=== PATIENT | female | born 1940 | race Caucasian/White ===

== ENCOUNTER 2024-09-23 09:19 | Outpatient (CLI) | payer MEDICARE, SELFPAY ==
--- NOTE | ~2024-09-23 | XR_ITS ---
XR knee RT 3V Ordering provider: Nani Mariano, STRATEGY CONSULTANT History: . PAIN IN RIGHT KNEE . Comparison: None. FINDINGS: BONES: No acute fracture or dislocation. JOINT SPACES: Slight narrowing of the medial compartment. SOFT TISSUES: Normal. IMPRESSION: No acute osseous abnormality right knee. Mild to moderate osteoarthritic changes. Reviewed, dictated and finalized at location A. TROGRAPHER
== END 2024-09-23 09:20 | disposition home or self-care (01) ==
LOC: MICIMG 09:23
PROVIDERS: PCP Nurse Practitioner Family; Visit Provider Nurse Practitioner Family
DX: M17.11 Unilateral primary osteoarthritis, right knee (principal)
CPT/HCPCS: 73562

== ENCOUNTER 2025-05-31 10:39 | Emergency (ER) | payer MEDICARE, SELFPAY ==
[2025-05-31 10:47] VITALS: BP 151/76; PULSE 78; RESP 16; TEMP 36.5; O2SAT 96
--- NOTE | 2025-05-31 10:57 | ED_ITS ---
HPI - Dizziness General Chief Complaint: Dizziness Stated Complaint: dizziness Time Seen by Provider: 05/31/25 10:57 Source: patient Mode of arrival: ambulatory Limitations: no limitations History of Present Illness HPI Narrative: 85 yo F presents with c/o dizziness on standing and when ambulatory for 2 days. On saturday pt did yardwork, scrubbed kitchen floors and moved furniture to clean. around 3 or 4 pm she started feelin dizzy. States i feel fine otherwise. i dont feel sick. Ambulatory with steady gait. No CP or SOB. No vision changes. Was able to to drive herself to . No headache. Prior to this has been dizzy in the morning when gettin gout of bed only lasting a d few seconds. PCP was not able to see her today. All systems reviewed and negative except as noted above. Related Data Home Medications ?Medication ?Instructions ?Recorded ?Confirmed ?Last Taken ?Type ergocalciferol (vitamin D2) 1,250 1,250 mcg PO DAILY 1 07/31/24 06/14/25 Unknown History mcg (50,000 unit) capsule lisinopril 20 1 tablet PO DAILY 05/31/25 1 08/14/24 Unknown History mg-hydrochlorothiazide 12.5 mg tablet semaglutide 1 mg/dose (4 mg/3 mL) 1 mg subcut WEEKLY 1 07/31/24 06/14/25 Unknown History subcutaneous pen injector (Ozempic) simvastatin 20 mg tablet 20 mg PO QPM 05/31/25 Unknown History Allergies Allergy/AdvReac Type Severity Reaction Status Date / Time Sulfa (Sulfonamide AdvReac Mild Itching Verified 06/14/25 15:27 Antibiotics) codeine AdvReac Unknown Dizziness Verified 06/14/25 15:27 [facility] Past Medical History Medical History (Updated 06/16/25 @ 00:00 by Tomi Myers) History of high cholesterol History of high blood pressure Family History Family History Mother Family history of malignant neoplasm Father Family history of malignant neoplasm Comments At time of signature, agree with nursing past medical, surgical, social and family history. There is no relevant family history pertinent to the presenting complaint. Exam Narrative: GENERAL: This is a well-nourished, well-developed patient, in no apparent distress. HEAD: normocephalic, atraumatic. EYES: PERRL. Sclera clear/white. Vision is grossly intact. Extraocular motions intact EARS: External ears normal, auditory canals clear and without drainage, TMs normal without perforation. Hearing grossly intact. NOSE: External nose normal with no obvious nasal discharge, nares without redness, no rhinorrhea. THROAT: Mucous membranes moist, posterior pharynx clear. NECK: Neck supple, non-tender without lymphadenopathy, masses or thyromegaly. CARDIOVASCULAR: Regular rate and rhythm without murmurs, gallops, or rubs. RESPIRATORY: Clear to auscultation. Breath sounds equal bilaterally. No wheezes, rales, or rhonchi. GASTROINTESTINAL: Abdomen soft, non-tender, nondistended. Bowel sounds are active. No hepato-splenomegaly, or palpable masses. No guarding. SKIN: warm, Dry, intact with no suspicious lesions or rash, good texture and turgor. NEURO: awake, alert, and oriented to person, place and time. There were no obvious focal neurologic abnormalities. 5/5 Strength to all extremities. EXTREMITIES: No joint tenderness, effusion, or edema noted. Course Course Level of Care: Express Care Visit Vital Signs Vital signs: Vital Signs Temperature 36.5 C 05/31/25 10:47 Pulse Rate 78 05/31/25 10:47 Respiratory Rate 16 05/31/25 10:47 Blood Pressure 151/76 H 05/31/25 10:47 Pulse Oximetry 96 05/31/25 10:47 Oxygen Delivery Room Air 05/31/25 10:47 Temperature 36.5 C 05/31/25 10:47 Pulse Rate 78 05/31/25 10:47 Respiratory Rate 16 05/31/25 10:47 Blood Pressure 151/76 H 05/31/25 10:47 Pulse Oximetry 96 05/31/25 10:47 Oxygen Delivery Room Air 05/31/25 10:47 reviewed MDM - Dizziness MDM Narrative Medical decision making narrative: patient reports dizziness only when ambulatory for the past 2 days. Subsides after she is up and walking for a few seconds. No dizziness at this time. No dizziness during exam. No complaints of pain. Patient is alert oriented x3. No neuro deficits noted. No chest pain or shortness of breath. Will start meclizine. Recommend follow-up with primary care physician for further evaluation. Patient will go to the ER for any worsening of symptoms. Discharge Plan Discharge Clinical Impression: Vertigo Patient Disposition: Home Condition: Stable Instructions: Vertigo (ED), Dizziness (ED) Additional Instructions: Take medication as prescribed. Drink at least 64 ounces of water a day. Follow up with your doctor in 3 days for further evaluation. For any worsening of symptoms, go to the ER. Patient Language: Andorran Prescriptions: No Action lisinopril-hydrochlorothiazide 20-12.5 mg tablet 1 tablet PO DAILY simvastatin 20 mg tablet 20 mg PO QPM ergocalciferol (vitamin D2) 1,250 mcg (50,000 unit) capsule 1,250 mcg PO DAILY Ozempic 1 mg/dose (4 mg/3 mL) pen injector 1 mg SUBCUT WEEKLY Follow-up/Referrals: García,Nani Canseco NP [Primary Care Provider, Unknown] Time of Disposition: 11:11
[2025-05-31] MEDS: MECLIZINE HCL 25 MG TABLET PO (11:12)
== END 2025-05-31 11:14 | disposition home or self-care (01) ==
PROVIDERS: Emergency Provider Nurse Practitioner Family; PCP Nurse Practitioner Family
DX: R42 Dizziness and giddiness (principal); I10 Essential (primary) hypertension; E78.00 Pure hypercholesterolemia, unspecified
CPT/HCPCS: 99213; A9270; G0463

== ENCOUNTER 2025-06-14 14:02 | Emergency (ER) | payer MEDICARE, SELFPAY ==
[2025-06-14 14:13] VITALS: BP 116/64; PULSE 93; RESP 16; TEMP 36.8; O2SAT 96
--- NOTE | 2025-06-14 14:40 | ED.GENADULT ---
HPI - General Adult General Chief complaint: Weakness Stated complaint: weakness Time Seen by Provider: 06/14/25 14:40 Source: patient, RN notes reviewed and old records reviewed Mode of arrival: ambulatory Limitations: no limitations History of Present Illness HPI narrative: 85-year-old female presents to the [facility] with complaints of generalized weakness that started Saturday or Saturday. Patient states for the last couple days she has sleeping all the time, States that she will sleep at night get up and half to take nap. Denies any chest pain currently. Denies any shortness of breath, abdominal pain. Denies any urinary symptoms. Patient reports yesterday she had some shortness of breath and sternal chest pressure which has subsided today. States that she had trouble walking up and down stairs. Recently is diagnosed with vertigo did take meclizine, did follow-up with primary care provider was prescribed prednisone. A CT has been ordered but not done yet. Patient states a week ago she did receive her flu and COVID vaccine. Onset (ago): day(s) (2-3) Treatments prior to arrival: none Related Data Home Medications ?Medication ?Instructions ?Recorded ?Confirmed ?Last Taken ?Type ergocalciferol (vitamin D2) 1,250 1,250 mcg PO DAILY 05/31/25 06/14/25 Unknown History mcg (50,000 unit) capsule lisinopril 20 1 tablet PO DAILY 05/31/25 06/14/25 Unknown History mg-hydrochlorothiazide 12.5 mg tablet semaglutide 1 mg/dose (4 mg/3 mL) 1 mg subcut WEEKLY 05/31/25 06/14/25 Unknown History subcutaneous pen injector (Ozempic) simvastatin 20 mg tablet 20 mg PO QPM 05/31/25 06/14/25 Unknown History Allergies Allergy/AdvReac Type Severity Reaction Status Date / Time Sulfa (Sulfonamide AdvReac Mild Itching Verified 06/14/25 15:27 Antibiotics) codeine AdvReac Unknown Dizziness Verified 06/14/25 15:27 Review of Systems Review of Systems: All systems reviewed & are unremarkable except as noted in HPI and below Constitutional: Constitutional: Reports as per HPI, Reports fatigue, Denies fever(s), Reports lethargy and Reports malaise ENT: Reports system reviewed and no additional complaints, except as documented Cardiovascular: Cardiovascular: Reports as per HPI, Denies chest pain and Denies dyspnea Respiratory: Respiratory: Reports as per HPI, Denies chest congestion, Denies cough and Reports dyspnea (yesterday) Musculoskeletal: Musculoskeletal: Reports no additional musculoskeletal complaints Integumentary/Breasts: Skin/Breast: Reports system reviewed and no additional complaints, except as docu [facility] Past Medical History Medical History (Updated 06/14/25 @ 16:05 by Stephanie Rubalcava APRN) History of high cholesterol History of high blood pressure Family History Family History Mother Family history of malignant neoplasm Father Family history of malignant neoplasm Comments At the time of my signature, I reviewed and agree with the nursing past medical, surgical, social, and family history. There is no relevant family history pertinent to the patient complaint. Exam Const: General: cooperative, healthy appearing, comfortable, no acute distress, well developed, alert and well nourished Nutritional Appearance: well nourished Orientation/consciousness: patient oriented x3 Limitations: no limitations HENMT: Head: normal to inspection Ears: hearing grossly normal bilaterally, external ears normal, TM's normal bilaterally, EAC's normal, mastoids normal and no periauricular adenopathy Face/Nose/Sinus: Normal external nose present Mouth: Yes Normal oral and palatal mucosa present, Yes lip normal, Yes tongue normal and Yes moist mucous membranes Throat: posterior oropharynx normal, uvula midline and no uvular edema Eyes: General: appearance normal, both eyes and all related structures Alignment and Position: alignment normal Neck: Neck: normal visual inspection, full ROM, no lymphadenopathy and no meningeal signs Chest: Chest palpation & inspection: normal inspection of the chest Resp: Effort & Inspection: normal respiratory effort and able to speak in complete sentences Auscultation: clear to auscultation bilaterally, no crackles, no rales, no rhonchi and no wheezes Cardio: Rate: regular rate Skin: General skin exam: normal color and no rashes or lesions noted Neuro: General: patient oriented x3, gait normal, moves all extremities and no meningeal signs Cognition (Neuro): normal cognition Speech: normal speech Gait exam (Neuro): Normal gait present Extrem: General: normal to inspection, full ROM, capillary refill normal and normal gait Psych: Appearance: grossly normal and well kempt Mental Status: mental status grossly normal Speech and movement: Normal speech and movement present and Clear speech present Affect: normal affect Attitude: cooperative Course Course Level of Care: Express Care Visit Vital Signs Vital signs: Vital Signs Temperature 98.3 F 06/14/25 14:13 Pulse Rate 93 06/14/25 14:13 Respiratory Rate 16 06/14/25 14:13 Blood Pressure 116/64 06/14/25 14:13 Pulse Oximetry 96 06/14/25 14:13 Oxygen Delivery Room Air 06/14/25 14:13 Temperature 98.3 F 06/14/25 14:13 Pulse Rate 93 06/14/25 14:13 Respiratory Rate 16 06/14/25 14:13 Blood Pressure 116/64 06/14/25 14:13 Pulse Oximetry 96 06/14/25 14:13 Oxygen Delivery Room Air 06/14/25 14:13 Reviewed Medical Decision Making MDM Narrative Medical decision making narrative: patient sitting in exam room. Patient is nontoxic, vitals are stable. Patient presents generalized weakness and increasing sleeping as well as chest pain yesterday associated with some shortness of breath due to patient's age, chief complaints as well as abnormal EKG will send for higher level care EMS offered twice, patient declined x2 transfer instructions reviewed with patient to go directly to the ER. All questions have been answered, and the patient deny any further questions. Some parts of this dictation were generated by voice recognition software and may contain typographical and/or grammatical inaccuracies. Differential Diagnosis Differential Diagnosis: PE, cardiac, electrolyte imbalance, UTI pneumonia, flu, COVID Medical Records Medical records reviewed: Yes I reviewed the external patient's medical records. Vital Signs Vital Signs: Vital Signs Temperature 98.3 F 06/14/25 14:13 Pulse Rate 93 06/14/25 14:13 Respiratory Rate 16 06/14/25 14:13 Blood Pressure 116/64 06/14/25 14:13 Pulse Oximetry 96 06/14/25 14:13 Oxygen Delivery Room Air 06/14/25 14:13 Temperature 98.3 F 06/14/25 14:13 Pulse Rate 93 06/14/25 14:13 Respiratory Rate 16 06/14/25 14:13 Blood Pressure 116/64 06/14/25 14:13 Pulse Oximetry 96 06/14/25 14:13 Oxygen Delivery Room Air 06/14/25 14:13 Reviewed Lab Data Lab results reviewed: Yes I reviewed the patient's lab results. Labs: Lab Results 06/14/25 Range/Units 15:10 POC Influenza A Ag Negative (Negative) POC Influenza B Ag Negative (Negative) POC SARS CoV-2 Ag Negative (Negative) Reviewed ECG Data EKG #1: Attestation: I personally reviewed and interpreted this ECG as follows: ECG completion date: 06/14/25 ECG completion time: 14:56 Prior ECG tracings: not available for review Interpretation: ventricular rate 84, SD interval 139, QRS duration 70 with 3. Sinus rhythm with sinus arrhythmia. Moderate T-wave abnormality, consider anterior ischemia. Concern for changes in V3 V4 V5. Abnormal EKG Critical Care Time Critical Care Time Critical Care Time: No Discharge Plan Discharge Clinical Impression: Generalized weakness Patient Disposition: Acute Care Hospital Condition: Stable Patient Language: Palestinian Prescriptions: No Action lisinopril-hydrochlorothiazide 20-12.5 mg tablet 1 tablet PO DAILY simvastatin 20 mg tablet 20 mg PO QPM ergocalciferol (vitamin D2) 1,250 mcg (50,000 unit) capsule 1,250 mcg PO DAILY Ozempic 1 mg/dose (4 mg/3 mL) pen injector 1 mg SUBCUT WEEKLY Follow-up/Referrals: García,Nani Canseco NP [Primary Care Provider, Unknown]
--- NOTE | 2025-06-14 15:09 | ECG_ITS ---
Test Date: 2025-06-14 14:56:30 Measurements Intervals [place] Rate: 84 P: 52 NM: 139 QRS: -43 QRSD: 73 T: 123 QT: 354 QTc: 419 Interpretive Statements SINUS RHYTHM WITH SINUS ARRHYTHMIA LEFTWARD AXIS PATTERN CONSISTENT WITH PULMONARY DISEASE T-WAVE ABNORMALITY, CONSIDER ISCHEMIA Electronically Signed On 06-15-2025 05:49:24 HIV NURSE by Gerald Peralta D.O
[2025-06-14 15:12] LABS: EDCOVIDSCREEN Negative (Negative); EDINFLUASCREEN Negative (Negative); EDINFLUBSCREEN Negative (Negative)
== END 2025-06-14 15:08 | disposition short-term general hospital (02) ==
LOC: EXPCOLL 14:04
PROVIDERS: Emergency Provider Nurse Practitioner; PCP Nurse Practitioner Family
DX: R53.1 Weakness (principal); Z20.822 Contact with and (suspected) exposure to COVID-19; I10 Essential (primary) hypertension; E78.00 Pure hypercholesterolemia, unspecified
CPT/HCPCS: 87426; 87804; 93005; 99203; G0463

== ENCOUNTER 2025-06-14 15:41 | Emergency (ER) | payer MEDICARE, SELFPAY ==
[2025-06-14] VITALS (26 sets, daily range): BP systolic 116–156; BP diastolic 54–85; PULSE 84–101; RESP 16–27; TEMP 36.4; O2SAT 85–96
--- NOTE | ~2025-06-14 | XR_ITS ---
EXAMINATION: XR chest 2V, 06/14/2025 16:30 ESTIMATOR PRINTING HISTORY: sob COMPARISON: No comparisons available. Technique: 2 views obtained. Findings: The lungs are clear, no effusion. No pneumothorax. Heart is normal size. Mediastinal and hilar contours are within normal limits. Bony thorax no acute abnormality. Impression: No acute cardiopulmonary abnormality. Reviewed, dictated and finalized at location P. MATOR PRINTING Impression: No acute cardiopulmonary abnormality.
--- NOTE | ~2025-06-14 | CT_ITS ---
EXAMINATION: CTA chest PE protocol DATE: 06/14/2025 19:50 INDICATION: Shortness of breath. TECHNIQUE: Computed tomography angiography (CTA) of the chest was performed with 100 mL Omnipaque-350 intravenous contrast timed to evaluate the pulmonary arteries. Coronal maximum intensity projection 3D-reconstructions were created by the technologist. Automated exposure control and iterative reconstruction technique were employed. The dose-length product was 231.74 mGy-cm. COMPARISON: Chest x-ray dated 06/14/2025. FINDINGS: Intraluminal filling defects are noted extending into both main pulmonary arteries saddle embolus. Emboli continue into upper and lower lobar branches noted significant narrowing of the lumen on both sides. The embolic load is moderately significant. Mildly dilated right ventricle and right atrium indicating elevated right ventricular pressure. No acute findings of the thoracic aorta. IMPRESSION: 1. Extensive bilateral pulmonary emboli as described above. Moderately significant embolic load with evidence of increased right ventricular pressure. 2. Critical findings conveyed to attending physician by telephone call at 8:01 PM. Reviewed, dictated and finalized at location T. PI ARCHITECT IMPRESSION: 1. Extensive bilateral pulmonary emboli as described above. Moderately signific ant embolic load with evidence of increased right ventricular pressure. 2. Critical findings conveyed to attending physician by telephone call at 8:01 PM.
--- NOTE | 2025-06-14 16:16 | ED_ITS ---
HPI - Weakness General Chief complaint: Weakness <Rosemarie Kapoor PA-C - Last Filed: 06/15/25 09:29> Stated complaint: weakness abnormal EKG <Rosemarie Kapoor PA-C - Last Filed: 06/15/25 09:29> Time Seen by Provider: 06/14/25 16:16 <Rosemarie Kapoor PA-C - Last Filed: 06/15/25 09:29> Focused HPI: This is a 85 year old female that presents to the ER for vertigo. Ongoing over the last couple of weeks. Reports she was started on Meclizine and a steroid. Reports she has had increased fatigue. Reports over the last couple of days she has developed shortness of breath, burning chest pain. GENERAL: Well-appearing, well-nourished, and in no acute distress. HEAD: Normocephalic, atraumatic. CHEST: Clear to auscultation. ?No respiratory distress. HEART: Regular rate and rhythm.? NEURO: ?Alert and oriented x3. Patient screened in triage and initial orders placed.? ?Additional care and disposition to be based upon?diagnostic testing and treatment. <Rosemarie Kapoor PA-C - Last Filed: 06/15/25 09:29> History of Present Illness HPI Narrative: Breathe HPI. Exertional dyspnea over last week that is worsening. Low O2 here. No chest pain. No hemoptysis. No leg swelling. <Gabino Owen MD - Last Filed: 06/19/25 07:18> Related Data Home medications: Home Medications ?Medication ?Instructions ?Recorded ?Confirmed ?Last Taken ?Type ergocalciferol (vitamin D2) 1,250 1,250 mcg PO DAILY 1 07/31/24 06/14/25 Unknown History mcg (50,000 unit) capsule lisinopril 20 1 tablet PO DAILY 05/31/25 1 08/14/24 Unknown History mg-hydrochlorothiazide 12.5 mg tablet semaglutide 1 mg/dose (4 mg/3 mL) 1 mg subcut WEEKLY 07/31/24 06/14/25 Unknown History subcutaneous pen injector (Ozempic) simvastatin 20 mg tablet 20 mg PO QPM 05/31/25 Unknown History <Rosemarie Kapoor PA-C - Last Filed: 06/15/25 09:29> Allergies/Adverse reactions: Allergies Allergy/AdvReac Type Severity Reaction Status Date / Time Sulfa (Sulfonamide AdvReac Mild Itching Verified 06/14/25 15:27 Antibiotics) codeine AdvReac Unknown Dizziness Verified 06/14/25 15:27 <Rosemarie Kapoor PA-C - Last Filed: 06/15/25 09:29> Review of Systems 2 Review of Systems: All systems reviewed & are unremarkable except as noted in HPI and below <Gabino Owen MD - Last Filed: 06/19/25 07:18> Constitutional: Constitutional: Reports no additional constitutional complaints <Gabino Owen MD - Last Filed: 06/19/25 07:18> ENT: Reports system reviewed and no additional complaints, except as documented <Gabino Owen MD - Last Filed: 06/19/25 07:18> Cardiovascular: Cardiovascular: Reports no additional cardiovascular complaints <Gabino Owen MD - Last Filed: 06/19/25 07:18> Respiratory: Respiratory: Reports no additional respiratory complaints < Gabino Owen MD - Last Filed: 06/19/25 07:18> Gastrointestinal: Gastrointestinal: Reports no additional gastrointestinal complaints <Gabino Owen MD - Last Filed: 06/19/25 07:18> [facility] Past Medical History Medical History: Medical History (Updated 06/16/25 @ 00:00 by Tomi Myers) History of high cholesterol History of high blood pressure <Rosemarie Kapoor PA-C - Last Filed: 06/15/25 09:29> Family History Family History: Family History Mother Family history of malignant neoplasm Father Family history of malignant neoplasm <Rosemarie Kapoor PA-C - Last Filed: 06/15/25 09:29> Exam 2 Narrative: GENERAL: Well-appearing, well-nourished, and in no acute distress. HEAD: Normocephalic, atraumatic. ENT: Mucous membranes moist. CHEST: Clear to auscultation. No respiratory distress. HEART: Regular rate and rhythm. Normal peripheral pulses. ABDOMEN: Soft, nontender, nondistended. EXTREMITIES: Normal range of motion. No edema. SKIN: Warm, dry, no rash. NEURO: Alert and oriented x3. PSYCH: Normal mood and affect. <Gabino Owen MD - Last Filed: 06/19/25 07:18> Course Course Emergency Course: Patient resting comfortable a. Tolerating 2 L O2 with normal oxygen saturation. No pain. Discussed saddle pulmonary embolism. Started on heparin. Patient may require thrombectomy. [facility] by Dr. Breen. <Gabino Owen MD - Last Filed: 06/19/25 07:18> Vital Signs Vital signs: Vital Signs Temperature 97.6 F 06/14/25 15:44 Pulse Rate 97 06/14/25 15:44 Respiratory Rate 18 06/14/25 15:44 Blood Pressure 126/60 06/14/25 15:44 Pulse Oximetry 95 06/14/25 15:44 Oxygen Delivery Room Air 06/14/25 15:44 Temperature 97.6 F 06/14/25 15:44 Pulse Rate 92 06/15/25 02:45 Respiratory Rate 18 06/15/25 02:45 Blood Pressure 108/57 L 06/15/25 02:30 Pulse Oximetry 93 06/15/25 02:45 Oxygen Delivery Nasal Cannula 06/14/25 18:03 Oxygen Flow Rate 2 06/14/25 18:03 <Rosemarie Kapoor PA-C - Last Filed: 06/15/25 09:29> Vital Signs Temperature 97.6 F 06/14/25 15:44 Pulse Rate 97 06/14/25 15:44 Respiratory Rate 18 06/14/25 15:44 Blood Pressure 126/60 06/14/25 15:44 Pulse Oximetry 95 06/14/25 15:44 Oxygen Delivery Room Air 06/14/25 15:44 Temperature 97.6 F 06/14/25 15:44 Pulse Rate 92 06/15/25 02:45 Respiratory Rate 18 06/15/25 02:45 Blood Pressure 108/57 L 06/15/25 02:30 Pulse Oximetry 93 06/15/25 02:45 Oxygen Delivery Nasal Cannula 06/14/25 18:03 Oxygen Flow Rate 2 06/14/25 18:03 <Gabino Owen MD - Last Filed: 06/19/25 07:18> MDM - Weakness Differential Diagnosis Differential diagnosis: Likely acute myocardial infarction, anemia, sepsis, dehydration and other (Pneumothorax, PE) <Gabino Owen MD - Last Filed: 06/19/25 07:18> Lab Data Attestation: I reviewed the patient's lab results. <Gabino Owen MD - Last Filed: 06/19/25 07:18> Result diagrams: 06/14/25 17:17 06/14/25 17:17 <Rosemarie Kapoor PA-C - Last Filed: 06/15/25 09:29> Labs: Lab Results 06/14/25 06/14/25 06/14/25 Range/Units 17:17 19:00 21:59 WBC 12.2 H (4.5-10.0) K/mm3 RBC 4.98 (4.2-5.4) M/mm3 Hgb 14.9 (12.0-15.0) g/dL Hct 44.1 (37.0-47.0) % MCV 88.6 (80-100) fl MCH 29.9 (26-34) pg MCHC 33.8 (32-36) g/dl RDW 12.7 (11.5-14.5) % Plt Count 175 (150-375) k/mm3 MPV 9.9 (7.4-10.4) fl Immature Gran % (Auto) 0.7 H (0-0.5) % Neut % (Auto) 62.6 (45.5-73.1) % Lymph % (Auto) 23.9 (18.3-44.2) % [place] % (Auto) 11.2 H (2.6-8.5) % Eos % (Auto) 1.2 (0-4.4) % Baso % (Auto) 0.4 (0.2-1.2) % Lymph # (Auto) 2.91 (0.9-3.2) K/mm3 [place] # (Auto) 1.4 H (0.1-0.6) K/mm3 Eos # (Auto) 0.2 (0-0.3) K/mm3 Baso # (Auto) 0.1 (0.0-0.1) K/mm3 Abs Immat Gran (auto) 0.08 H (0.00-0.031) K/mm3 Absolute Neuts (auto) 7.6 H (1.3-6.7) K/mm3 Absolute Nucleated RBC 0.000 (0.0-0.012) K/mm3 Nucleated RBC % 0.0 (0.0-0.2) % PT 14.9 H (11.1-14.7) Seconds INR 1.2 APTT 29.1 (22.3-36.8) Seconds Sodium 132 L (137-145) mmol/L Potassium 3.6 (3.4-5.0) mmol/L Chloride 98 (98-107) mmol/L Carbon Dioxide 24 (22-30) mmol/L Anion Gap 10 (4-12) mmol/L BUN 16 (7-17) mg/dL Creatinine 0.91 (0.7-1.0) mg/dL Estim Creat Clear Calc 36 ml/min Estimated GFR 59 (59 - ) Glucose 145 H (65-110) mg/dL Calcium 9.3 (8.4-10.2) mg/dL Total Bilirubin 0.9 (0.2-1.3) mg/dL AST 31 (14-36) U/L ALT 40 H (6-35) U/L Alkaline Phosphatase 130 H (38-126) U/L Troponin I 0.127 H* 0.124 H* 0.114 H* (0.000-0.034) ng/mL NT-Pro-B Natriuret Pep 3470 H (19.9-100) pg/mL Total Protein 7.6 (6.3-8.2) g/dL Albumin 4.1 (3.5-5.1) g/dL Lipase 356 H (23-300) U/L Urine Color Dark yellow (Yellow) Urine Appearance Clear (Clear) Urine pH 5.5 (5.0-9.0) Ur Specific [place] 1.023 (1.001-1.035) Urine Protein 2+ H (Negative) mg/dL Urine Glucose (UA) Negative (Negative) mg/dL Urine Ketones Trace H (Negative) mg/dL Ur Blood (Man) Negative (Negative) Urine Nitrate Negative (Negative) Urine Bilirubin Negative (Negative) Urine Urobilinogen 1.0 (<2.0) mg/dL Add Ur Microanalysis Reviewed Leukocyte Esterase Rfl 1+ H (Negative) JERARDO/UL Urine RBC 0-2 (0-2) /hpf Urine WBC 11-20 H (0-3) /hpf Ur Squamous Epith Cells Occasional (Few) /hpf Urine Bacteria None seen /hpf Urine Casts 6-10 Granular Casts 1-2 H (None) /lpf <Rosemarie Kapoor PA-C - Last Filed: 06/15/25 09:29> Lab Results 06/14/25 06/14/25 06/14/25 Range/Units 17:17 19:00 21:59 WBC 12.2 H (4.5-10.0) K/mm3 RBC 4.98 (4.2-5.4) M/mm3 Hgb 14.9 (12.0-15.0) g/dL Hct 44.1 (37.0-47.0) % MCV 88.6 (80-100) fl MCH 29.9 (26-34) pg MCHC 33.8 (32-36) g/dl RDW 12.7 (11.5-14.5) % Plt Count 175 (150-375) k/mm3 MPV 9.9 (7.4-10.4) fl Immature Gran % (Auto) 0.7 H (0-0.5) % Neut % (Auto) 62.6 (45.5-73.1) % Lymph % (Auto) 23.9 (18.3-44.2) % [place] % (Auto) 11.2 H (2.6-8.5) % Eos % (Auto) 1.2 (0-4.4) % Baso % (Auto) 0.4 (0.2-1.2) % Lymph # (Auto) 2.91 (0.9-3.2) K/mm3 [place] # (Auto) 1.4 H (0.1-0.6) K/mm3 Eos # (Auto) 0.2 (0-0.3) K/mm3 Baso # (Auto) 0.1 (0.0-0.1) K/mm3 Abs Immat Gran (auto) 0.08 H (0.00-0.031) K/mm3 Absolute Neuts (auto) 7.6 H (1.3-6.7) K/mm3 Absolute Nucleated RBC 0.000 (0.0-0.012) K/mm3 Nucleated RBC % 0.0 (0.0-0.2) % PT 14.9 H (11.1-14.7) Seconds INR 1.2 APTT 29.1 (22.3-36.8) Seconds Sodium 132 L (137-145) mmol/L Potassium 3.6 (3.4-5.0) mmol/L Chloride 98 (98-107) mmol/L Carbon Dioxide 24 (22-30) mmol/L Anion Gap 10 (4-12) mmol/L BUN 16 (7-17) mg/dL Creatinine 0.91 (0.7-1.0) mg/dL Estim Creat Clear Calc 36 ml/min Estimated GFR 59 (59 - ) Glucose 145 H (65-110) mg/dL Calcium 9.3 (8.4-10.2) mg/dL Total Bilirubin 0.9 (0.2-1.3) mg/dL AST 31 (14-36) U/L ALT 40 H (6-35) U/L Alkaline Phosphatase 130 H (38-126) U/L Troponin I 0.127 H* 0.124 H* 0.114 H* (0.000-0.034) ng/mL NT-Pro-B Natriuret Pep 3470 H (19.9-100) pg/mL Total Protein 7.6 (6.3-8.2) g/dL Albumin 4.1 (3.5-5.1) g/dL Lipase 356 H (23-300) U/L Urine Color Dark yellow (Yellow) Urine Appearance Clear (Clear) Urine pH 5.5 (5.0-9.0) Ur Specific [place] 1.023 (1.001-1.035) Urine Protein 2+ H (Negative) mg/dL Urine Glucose (UA) Negative (Negative) mg/dL Urine Ketones Trace H (Negative) mg/dL Ur Blood (Man) Negative (Negative) Urine Nitrate Negative (Negative) Urine Bilirubin Negative (Negative) Urine Urobilinogen 1.0 (<2.0) mg/dL Add Ur Microanalysis Reviewed Leukocyte Esterase Rfl 1+ H (Negative) JERARDO/UL Urine RBC 0-2 (0-2) /hpf Urine WBC 11-20 H (0-3) /hpf Ur Squamous Epith Cells Occasional (Few) /hpf Urine Bacteria None seen /hpf Urine Casts 6-10 Granular Casts 1-2 H (None) /lpf <Gabino Owen MD - Last Filed: 06/19/25 07:18> Imaging Data Radiologist's impression: ITS Impressions Chest X-Ray 06/14/25 16:49 Impression: No acute cardiopulmonary abnormality. Chest CTA 06/14/25 19:51 IMPRESSION: 1. Extensive bilateral pulmonary emboli as described above. Moderately significant embolic load with evidence of increased right ventricular pressure. 2. Critical findings conveyed to attending physician by telephone call at 8:01 PM. <Gabino Owen MD - Last Filed: 06/19/25 07:18> ECG Data EKG #1: ECG completion date: 06/14/25 <Gabino Owen MD - Last Filed: 06/19/25 07:18> ECG completion time: 14:55 <Gabino Owen MD - Last Filed: 06/19/25 07:18> EKG Interpretation: normal rate (85), sinus rhythm, non-specific ST changes, normal QRS, normal QT and left axis <Gabino Owen MD - Last Filed: 06/19/25 07:18> Critical Care Time Critical Care Time Critical Care Time: Yes <Gabino Owen MD - Last Filed: 06/19/25 07:18> Total Critical Care Time: 35 <Gabino Owen MD - Last Filed: 06/19/25 07:18> Discharge Plan Discharge Clinical Impression: Acute saddle pulmonary embolism <Rosemarie Kapoor PA-C - Last Filed: 06/15/25 09:29> Patient Disposition: Acute Care Hospital <Rosemarie Kapoor PA-C - Last Filed: 06/15/25 09:29> Condition: Stable <Rosemarie Kapoor PA-C - Last Filed: 06/15/25 09:29> Patient Language: Kiswahili <Rosemarie Kapoor PA-C - Last Filed: 06/15/25 09:29> Prescriptions: No Action lisinopril-hydrochlorothiazide 20-12.5 mg tablet 1 tablet PO DAILY simvastatin 20 mg tablet 20 mg PO QPM ergocalciferol (vitamin D2) 1,250 mcg (50,000 unit) capsule 1,250 mcg PO DAILY Ozempic 1 mg/dose (4 mg/3 mL) pen injector 1 mg SUBCUT WEEKLY <Rosemarie Kapoor PA-C - Last Filed: 06/15/25 09:29> Follow-up/Referrals: García,Nani Canseco NP [Primary Care Provider, Unknown] <Rosemarie Kapoor PA-C - Last Filed: 06/15/25 09:29>
--- NOTE | 2025-06-14 16:18 | ECG_ITS ---
Test Date: 2025-06-14 17:06:31 Measurements Intervals [place] Rate: 84 P: 50 NE: 133 QRS: -49 QRSD: 72 T: 77 QT: 351 QTc: 417 Interpretive Statements SINUS RHYTHM POSSIBLE LEFT ATRIAL ENLARGEMENT [-0.1mV P-WAVE IN V1/V2] LEFT ANTERIOR FASCICULAR BLOCK [QRS AXIS <= -45, QR IN I, RS IN II] ABNORMAL ECG Compared to ECG 06/14/2025 14:56:30 NO SIGNIFICANT CHANGE Electronically Signed On 06-15-2025 17:23:49 [employer] by Jean Jack M.D.
[2025-06-14 17:26] LABS: Hematocrit 44.1 % (37.0-47.0); Hemoglobin 14.9 g/dL (12.0-15.0); Immature Granulocyte Percent A 0.7 % (0-0.5); Lymphocytes Absolute Auto 2.91 K/mm3 (0.9-3.2); Mean Corpuscular HGB Conc 33.8 g/dl (32-36); Mean Corpuscular Hemoglobin 29.9 pg (26-34); Mean Corpuscular Volume 88.6 fl (80-100); Nucleated Red Blood Cells Absolute Auto 0.000 K/mm3 (0.0-0.012); Nucleated Red Blood Cells Perc 0.0 % (0.0-0.2); Platelet Count Result 175 k/mm3 (150-375); Red Blood Count 4.98 M/mm3 (4.2-5.4); White Blood Count 12.2 K/mm3 (4.5-10.0)
[2025-06-14 17:36] LABS: INR 1.2; Prothrombin Time 14.9 Seconds (11.1-14.7)
[2025-06-14 17:37] LABS: Partial Thromboplastin Time 29.1 Seconds (22.3-36.8)
[2025-06-14 17:38] LABS: Alanine Aminotransferase 40 U/L (6-35); Albumin Level 4.1 g/dL (3.5-5.1); Alkaline Phosphatase 130 U/L (38-126); Anion Gap 10 mmol/L (4-12); Aspartate Amino Transferase 31 U/L (14-36); Bilirubin,Total 0.9 mg/dL (0.2-1.3); Blood Urea Nitrogen 16 mg/dL (7-17); Calcium 9.3 mg/dL (8.4-10.2); Carbon Dioxide 24 mmol/L (22-30); Chloride 98 mmol/L (98-107); Estimated CRCL calculation 36 ml/min; Estimated Glomerular Filt Rate 59; Glucose 145 mg/dL (65-110); Lipase 356 U/L (23-300); Potassium 3.6 mmol/L (3.4-5.0); Sodium 132 mmol/L (137-145); Total Protein 7.6 g/dL (6.3-8.2)
[2025-06-14 17:46] LABS: Add Urine Microscopic? YES; Appearance Urine Clear (Clear); Glucose Urine UA Negative (Negative); Leukocyte Esterase Ur 1+ LEU/UL (Negative); Need Manual Microscopic Reviewed; Nitrate Urine Negative (Negative); Specific Grav Ur 1.023 (1.001-1.035)
[2025-06-14 18:07] LABS: NT Pro B Type Natriuretic Pept 3470 pg/mL (19.9-100); Troponin I 0.127 ng/mL (0.000-0.034)
--- OUTSIDE RECORDS SUMMARY | 2025-06-14 18:13 | XMS_ITS | Data Portability ---
Author Organization [facility] [employer], Main Office Address [address] [place] [address] Assessment No assessment recorded. Plan of Treatment Reminders Order Date Submit Date Provider Last Modified By Organization Details Last Modified Time Details Appointments Follow Up 30 2025 08:30A Candy Mariano NP Not available Not available Not available Lab vitamin D, 25-hydrox y, total, serum 2024 025 [facility] (Lab), [address] [place], [address], 04/01/2025 08:37:37 glycohemo globin, total, blood 2024 025 [facility] (Lab), [address] [place], [address], 04/01/2025 08:37:37 CMP, serum or plasma 2024 025 [facility] (Lab), [address] [place], [address], 2025 14:01:00 CBC w/ auto diff 2024 025 [facility] (Lab), [address] [place], [address], 2025 14:01:00 lipid panel, serum 2024 025 [facility] (Lab), [address] [place], [address], 2025 14:01:01 TSH, serum or plasma 2024 025 [facility] (Lab), [address], [place], [address], 2025 14:01:00 Referral None recorded. Procedures None recorded. Surgeries None recorded. Imaging CT, head, w/o contrast - Please call patient to schedule. 2024 [facility], [address], [place], [address], 06/08/2025 12:38:27 XR, knee, 3 view 2024 [facility], [address], [place], [address], 09/23/2024 12:50:10 Medication Orders prednison e 20 mg tablet 2024 025 [facility], [address] [facility], [place], [address], 06/03/2025 12:14:10 ergocalci ferol (vitamin D2) 1,250 mcg (50,000 unit) capsule 2024 025 [facility]25, [address] [facility], [place], [address], 2025 09:38:20 Ozempic 1 mg/dose (4 mg/3 mL) subcutane ous pen injector 2024 025 [facility] [address], [address] [facility], [place], [address], 2025 09:38:21 lisinopri l 20 mg-hydroc hlorothia zide 12.5 mg tablet 2024 025 [facility], [address] [facility], [place], [address], 2025 09:38:25 simvastat in 20 mg tablet 2024 025 [facility] [address], [address], [place], [address], 2025 09:38:21 ergocalci ferol (vitamin D2) 1,250 mcg (50,000 unit) capsule 2024 025 [facility] [address], [address], [place], [address], 12/24/2024 09:39:28 Wegovy 1 mg/0.5 mL subcutane ous pen injector 2024 025 [id number] [facility] [address]25, [address], [place], [address], 12/24/2024 15:34:57 Ozempic 1 mg/dose (4 mg/3 mL) subcutane ous pen injector 2024 025 [facility] [address], [address], [place], [address], 09/23/2024 10:01:31 Patient TargetsNo targets recorded. Patient Instructions Encounter Date Encounter Id Patient Instructions Last Modified By Organization Details Last Modified Time 2025 [id number] dementia rating scale-2* [id number] Not available 2025 09:43:21 multi-dimensiona l health assessment questionnaire* [email or web address] Not available 2025 09:43:13 care plan* MONTY Not available 03/25 10:54:17 advance directiv es: care instructions [email or web address] Not available 2025 09:38:13 advance care planning: care instructions [email or web address] Not available 2025 09:38:13 [place] Advance Directives [id number] Not available 2025 09:38:13 Personalized a lt Plan and Screening Recommendations Advance Directives - Do you have one? Advance Directives - Do we have your advance directive on file in your health record? Primary Prevention/Interven tion (prevents or decreases the chance of common diseases from occurring) Smoking Risk: Alcohol Misuse Screening: Weight: Physical activity: Nutrition: Fall Risk (screened today): Vaccines Pneumococcal: Influenza: Chronic Disease Risks Stroke: Active diagnosis, Continue current treatment plan Heart Attack: Active diagnosis, Continue current treatment plan Clogging of the Arteries: Active diagnosis, Continue current treatment plan Diabetes: Active diagnosis, Continue current treatment plan Secondary Prevention/Interven tion (detects treatable diseases before they may cause symptoms, disability, or ) Breast Cancer Screening with mammogram: Cervical/Uterine/Ov rito Cancer Screening: Osteoporosis Screening: Date Screening Last Performed: Colon Cancer Screening: Date Screening Last Performed: Eye Disease Screening: Your next exam in: Dementia Risk: Depression Screening: Active diagnosis, Continue current treatment plan Not available 2025 09:19:36 Reason for Referral None Reported. Results Created Date Observation Date Name Description Value Unit Range Abnormal Flag Note LastModifiedBy Organization Detail LastModifiedTime 09/24/1909/23/2024 XR, knee, 3 view No observ ation record ed. [email or web address] [facility] [address] [address], [place], [address], 09/23/2024 15:15:40 Result Notes None recorded. Problems Name Problem SNOMED Code Status Onset Date Resolution Date Notes Provider Name and Address Organization Details Recorded Time Acute contact dermatiti s 509350182 Completed Not Available [facility] 3 02:51:25 Gastroeso phageal reflux disease 934716221 Active Not Available [facility] 3 02:51:25 Hypertrop hic condition of skin 02317877 Completed Not Available [facility] 3 02:51:25 Type 2 diabetes mellitus without complicat ion 585174162 Active Not Available [facility] 3 02:51:25 Hypertens destiny disorder 70990710 Active Not Available [facility] 3 02:51:25 Acute urinary tract infection 902846242 Completed Not Available [facility] 3 02:51:26 Foot pain 23205970 Completed Not Available [facility] 3 02:51:26 Hyperlipi demia 23734023 Active Not Available [facility] 3 02:51:26 Essential hypertens ion 66993433 Active Not Available [facility] 3 02:51:26 Hyperglyc emia 81963972 Completed Not Available [facility] 3 02:51:26 Skin lesion 96433157 Completed CRYSTAL Pacheco [address], [address], [place], [address] , [employer] 4 11:00:45 Curly toe 980254949 Active 2019 Not Available [facility] 3 02:51:25 Diabetes mellitus 53561213 Active 2022 Concepcion Maldonado MD [address], [address], [place], [address] , [employer] 3 15:55:03 Skin lesion 40522634 Active 2023 CRYSTAL Pacheco [address], [address], [place], [address] , [employer] 4 11:00:45 Pain of right knee joint 67780149948 4100 Active 2023 CRYSTAL Pacheco [address], [address], [place], [address] , [employer] 4 11:30:09 Vitamin D deficienc y 05518252 Active 2024 CRYSTAL Pacheco [address], [address], [place], [address] , [employer] 5 09:38:03 Body mass index 25-29 - overweigh t 639496232 Active 2024 CRYSTAL Pacheco [address], [address], [place], [address] , [employer] 5 09:52:43 Vertigo 609788306 Active 2024 CRYSTAL Pacheco [address], [address], [place], [address] , [employer] 5 12:07:48 Acute transudat destiny otitis media 27567862 Active 2024 JOSR Pacheco-C [address], [address], [place], [address] , [employer] 5 12:12:02 Acute transudat destiny otitis media 88791865 Active 2024 CRYSTAL Pacheco [address], [address], [place], [address] , [employer] 5 12:12:11 Acute transudat destiny otitis media 42015971 Active 2024 CRYSTAL Pacheco [address], [address], [place], [address] , [employer] 14:21:51 Problem Notes None recorded. Procedures Surgical History Date Name Laterality Status Provider Name and Address Organization Details Recorded Time 03/25/20 25 Medicare Wellness CPT Code, subsequent completed JoseKATLIN Ramirez free[facility] 2025 09:19:37 Hysterectomy completed Not Available [facility] 09/19/2022 02:40:07 Breast Implants completed Not Available [facility] 09/19/2022 02:40:07 Cholecystectomy completed Not Available [facility] 09/19/2022 02:40:07 Imaging Results None recorded. Procedure Notes None recorded. Medical Equipment None Reported. Allergies Allergen ID Allergen Name Allergen Category Reaction Reaction Severity Criticality Documentation Date Start Date Code Code System Note Provider Name and Address Organization Details Recorded Time 4976 codeine medicatio n Not available Not available Not available 09/19/2022 7731 RxNorm Not Available [facility] 03:05:59 Medications Name Sig Start Date Stop Date Status Note LastModified by Organization Details LastModified Time Vitamin B-12 1,000 mcg/mL injection solution Inject 1 mL every month by intramus cular route. 05/20 completed 91671-82 44-01 Not Available Not Available Not Available doxycycli ne hyclate 100 mg capsule 09/17 completed Not Available Not Available Not Available atorvasta tin 20 mg tablet 1 po qhs 06/25 completed Not Available Not Available Not Available lisinopri l 20 mg-hydroc hlorothia zide 12.5 mg tablet TAKE 1 TABLET BY MOUTH EVERY DAY 2024 active Not Available Not Available Not Avai lable ofloxacin 0.3 % eye drops 03/24 completed Not Available Not Available Not Available prednison e 20 mg tablet Take 1 tablet every day by oral route. 2024 active Not Available Not Available Not Avai lable topiramat e 25 mg tablet 1 po qhs x 7 days then 1 po bid x 7 days then 1 po qAM and 2 po qhs x 7 days then 2 po bid 03/24 completed Not Available Not Available Not Available ciproflox acin 500 mg tablet TK 1 T PO Q 12 H FOR 5 DAYS 12/19 completed Not Available Not Available Not Available ketorolac 0.5 % eye drops 03/24 completed Not Available Not Available Not Available oxycodone -acetamin ophen 5 mg-325 mg tablet 10/20 completed Not Available Not Available Not Available amoxicill in 875 mg tablet Take 1 tablet every 12 hours by oral route. active Not Available Not Available No t Available prednisol one acetate 1 % eye drops,melisa pension 03/24 completed Not Available Not Available Not Available meclizine 25 mg tablet TAKE 1 TABLET BY MOUTH EVERY 6 TO 8 HOURS NEEDED FOR DIZZINES S active Not Available Not Available No t Available simvastat in 20 mg tablet TAKE 1 TABLET BY MOUTH EVERY DAY 2024 active Not Available Not Available Not Avai lable erythromy tarun 5 mg/gram (0.5 %) eye ointment 10/20 completed Not Available Not Available Not Available gabapenti n 300 mg capsule Take 1 capsule every day by oral route at bedtime for 30 days. active Not Available Not Available No t Available ergocalci ferol (vitamin D2) 1,250 mcg (50,000 unit) capsule Take 1 capsule every week by oral route. 2024 active Not Available Not Available Not Avai lable Aspir-81 mg tablet,de layed release Take 1 tablet every day by oral route in the morning for 30 days. 06/20 completed Internal note: every 2 daysExte rnal note: 2-3x a week Not Available Not Available Not Available methylpre dnisolone 4 mg tablets in a dose pack Take by oral route as directed on pack. active Not Available Not Available No t Available metformin ER 500 mg tablet,ex tended release 24 hr TAKE 1 TABLET BY MOUTH EVERY DAY 09/05 completed Not Available Not Available Not Available Bactrim DS 800 mg-160 mg tablet Take 1 tablet every 12 hours by oral route for 10 days. 04/03 completed Not Available Not Available Not Available [place] 3 1 po qd 05/20 completed Not Available Not Available Not Available OneTouch Ultra2 Meter kit U UTD 10/20 completed Not Available Not Available Not Available metformin ER 500 mg 24 hr tablet,ex tended release (gastric retention ) Take 1 tablet every day by oral route. 10/20 completed Not Available Not Available Not Available OneTouch Srinivasa Lancets 33 gauge TEST ONCE D 10/20 completed Not Available Not Available Not Available PreviDent 5000 Booster Plus 1.1 % dental paste U UTD 10/20 completed Not Available Not Available Not Available Jardiance 10 mg tablet TAKE 1 TABLET BY MOUTH EVERY DAY 03/21 completed Not Available Not Available Not Available True Metrix Glucose Test Strip TEST TID 03/24 completed Not Available Not Available Not Available Trulicity 1.5 mg/0.5 mL subcutane ous pen injector INJECT 1/2 (ONE-RAH F) ML SUBCUTAN EOUSLY ONCE A WEEK 08/20 completed Not Available Not Available Not Available Trulicity 0.75 mg/0.5 mL subcutane ous pen injector INJECT 1/2 (ONE-RAH F) ML SUBCUTAN EOUSLY ONCE A WEEK 03/24 completed 300$ with insuranc e Not Available Not Available Not Available Shingrix (PF) 50 mcg/0.5 mL intramusc ular suspensio n, kit ADM 0.5ML IM UTD 06/14 completed Not Available Not Available Not Available Fluad Quad (65yr up)(PF) 60 mcg (15 mcg x 4)/0.5mL IM syringe ADM 0.5ML IM UTD 06/14 completed Not Available Not Available Not Available Trulicity 3 mg/0.5 mL subcutane ous pen injector INJECT 1/2 (ONE-RAH F) ML SUBCUTAN EOUSLY ONCE A WEEK 11/18 completed Not Available Not Available Not Available Ozempic 1 mg/dose (4 mg/3 mL) subcutane ous pen injector INJECT 1MG SUBCUTAN EOUSLY ONCE A WEEK active Not Available Not Available No t Available Wegovy 1.7 mg/0.75 mL subcutane ous pen injector INJECT 1 MG EVERY WEEK BY SUBCUTAN EOUS ROUTE active Not Available Not Available No t Available Wegovy 1 mg/0.5 mL subcutane ous pen injector INJECT 1 MG EVERY WEEK BY SUBCUTAN EOUS ROUTE active Not Available Not Available No t Available Ozempic 0.25 mg or 0.5 mg (2 mg/3 mL) subcutane ous pen injector Inject 0.5 mg every week by subcutan eous route, for 4 weeks. 12/24 completed Not Available Not Available Not Available Vitals Date Recorded Body height Body mass index (BMI) Body weight Body temperature Heart rate Oxygen saturation Systolic And Diastolic Provider Name and Address Organization Details Last Updated DateTime 5 153.16 cm 29.6 kg/m2 20244.6 3 g 97.4 [degF] 80 /min 98 % 138/70 mm[Hg] Bonilla Khan RN [facility] [employer] [facility] 5 09:44:07 Date Recorded Body height Body mass index (BMI) Body weight Body temperature Heart rate Oxygen saturation Systolic And Diastolic Provider Name and Address Organization Details Last Updated DateTime 5 153.16 cm 29.2 kg/m2 64764.4 5 g 97.1 [degF] 73 /min 95 % 122/70 mm[Hg] KATLIN Bellamy [facility] [employer] [facility] 5 09:26:40 Date Recorded Body height Body mass index (BMI) Body weight Body temperature Heart rate Oxygen saturation Systolic And Diastolic Provider Name and Address Organization Details Last Updated DateTime 5 153.16 cm 28.6 kg/m2 30173.6 7 g 97.2 [degF] 73 /min 93 % 128/78 mm[Hg] KATLIN Bellamy [facility] 5 09:28:56 Date Recorded Body height Body mass index (BMI) Body weight Body temperature Heart rate Oxygen saturation Systolic And Diastolic Provider Name and Address Organization Details Last Updated DateTime 5 153.16 cm 28.2 kg/m2 69352.4 9 g 96.7 [degF] 81 /min 94 % 132/82 mm[Hg] KATLIN Bellamy [facility] 5 11:53:07 Social History Question Answer Notes LastModified by Organization Details LastModified Time Tobacco Smoking Status Former Smoker quit may 2013 Not Available [facility] 09/19/2022 02:30:10 What Is Your Level Of Caffeine Consumption? Moderate [id number] Information not available 09/19/2022 How Much Tobacco Do You Chew? None MIGRATION.0301 [id number] Information not available 09/19/2022 In The 14 Days Before Symptom Onset, Have You Had Close Contact With A Laboratory-confi rmed COVID-19 While That Case Was Ill? No MIGRATION.0301 [id number] Information not available 09/19/2022 In The 14 Days Before Symptom Onset, Have You Had Close Contact With A Person Who Is Under Investigation For COVID-19 While That Person Was Ill? No MIGRATION.0301 [id number] Information not available 09/19/2022 What Type Of Diet Are You Following? REGULAR MIGRATION.0301 [id number] Information not available 09/19/2022 When Did You Quit Smoking? 11-15yearssincelast cigarette Information not available 2025 Do You Use Insect Repellent Routinely? No Information not available 2025 Where Do You Live? SingleLevelHouse Information not available 2025 What Was The Date Of Your Most Recent Tobacco Screening? 2025 Information not available 2025 Do You Have Any Pets? No Information not available 2025 What Is Your Relationship Status? Single Information not available 2025 Do You Use Your Seat Belt Or Car Seat Routinely? Yes Information not available 2025 Do You Have Smoke And Carbon Monoxide Detectors In Your Home? Yes Information not available 2025 Are There Any Smokers In Your House? No Information not available 2025 How Much Tobacco Do You Smoke? 0.25 PPD MIGRATION.0301 [id number] Information not available 09/19/2022 Do You Participate In Social [employer]? No Information not available 2025 Do You Use Sunscreen Routinely? Yes Information not available 2025 Has Tobacco Cessation Counseling Been Provided? No MIGRATION.0301 [id number] Information not available 09/19/2022 Have You Recently Traveled Abroad? No MIGRATION.0301 [id number] Information not available 09/19/2022 Do You Have Any Dietary Restrictions? No MIGRATION.0301 727441 Information not available 09/19/2022 Sex: Unknown Functional Status Question Answer Note LastModified by Organizat ion Details LastModified Time Do you use any illicit or recreational drugs? No [id number] Information not available 09/19/2022 Do you or have you ever used any other forms of tobacco or nicotine? No MIGRATION.[id number] 026 Information not available 09/19/2022 What is your level of alcohol consumption? None MIGRATION.[id number] 026 Information not available 09/19/2022 Are you currently employed? No Information not available 2025 What is your occupation? Retired MIGRATION.[id number] 026 Information not available 09/19/2022 What is your exercise level? Occasional [id number] 026 Information not available 09/19/2022 Mental Status Question Answer Note LastModified by Organization D etails LastModified Time Do you feel stressed (tense, restless, nervous, or anxious, or unable to sleep at night)? [id number] Information not available 2025 Family History Relationship Description Onset Age of this Age Resolved Age Notes LastModified by Organization Details LastModified Time Mother Malignant neoplasm of ovary [id number] [id number] Not available 09/19/2022 02:40:09 Father Malignant neoplasm of pharynx MIGRATION.077 [id number] Not available 09/19/2022 02:40:09 Medical History Condition Response NEUROLOGICAL PROBLEMS N HYPERTENSION Y HYPOTHYROIDISM N HIGH CHOLESTEROL / HYPERLIPIDEMIA Y Gynecological HistoryNo gynecological history recorded. Obstetrics History GPAL:G 0 P 0 0 0 0 Immunizations Vaccine Type Date Status Note Provider Nam e and Address Organization Details Recorded Time COVID-19, mRNA, LNP-S, PF, 100 mcg/0.5mL dose or 50 mcg/0.25mL dose 1 completed Not Available [facility] 09/19/2022 03:05:17 COVID-19, mRNA, LNP-S, PF, 100 mcg/0.5mL dose or 50 mcg/0.25mL dose 1 completed Not Available [facility] 09/19/2022 03:05:17 COVID-19, mRNA, LNP-S, PF, 100 mcg/0.5mL dose or 50 mcg/0.25mL dose 1 completed Not Available [facility] 09/19/2022 03:05:17 Influenza, split virus, quadrivalent, preservative 0 completed Not Available [facility] 09/19/2022 03:05:17 Influenza, split virus, quadrivalent, preservative 9 completed Not Available [facility] 09/19/2022 03:05:17 pneumococcal polysaccharide PPV23 6 completed Not Available [facility] 09/19/2022 03:05:18 Influenza, high-dose, quadrivalent, PF 2 completed Not Available [facility] 09/19/2022 03:05:18 pneumococcal polysaccharide PPV23 1 completed Not Available [facility] 09/19/2022 03:05:18 Influenza, high-dose, quadrivalent, PF 1 completed Not Available [facility] 09/19/2022 03:05:18 Influenza, split virus, quadrivalent, PF 9 completed Not Available [facility] 09/19/2022 03:05:19 Pneumococcal conjugate PCV 13 7 completed Not Available [facility] 09/19/2022 03:05:19 zoster live 3 completed Not Available [facility] 09/19/2022 03:05:19 zoster recombinant 0 completed Not Available [facility] 06/03/2025 11:37:10 zoster recombinant 0 completed Not Available [facility] 06/03/2025 11:37:10 COVID-19, mRNA, LNP-S, PF, 30 mcg/0.3 mL dose 1 completed Not Available [facility] 06/03/2025 11:37:10 COVID-19, mRNA, LNP-S, bivalent, PF, 30 mcg/0.3 mL dose 2 completed Not Available [facility] 06/03/2025 11:37:10 Influenza, high-dose, quadrivalent, PF 3 completed Not Available [facility] 06/03/2025 11:37:10 COVID-19, mRNA, LNP-S, PF, dao-sucrose, 30 mcg/0.3 mL 3 completed Not Available [facility] 06/03/2025 11:37:10 RSV, recombinant, protein subunit RSVpreF, adjuvant reconstituted, 0.5 mL, PF 4 completed Not Available [facility] 06/03/2025 11:37:10 Tdap 4 completed Not Available [facility] 06/03/2025 11:37:10 Influenza, high-dose, trivalent, PF 4 completed Not Available [facility] 06/03/2025 11:37:10 Past Encounters Encounter ID Performer Location Encounter Start Date Encounter Closed Date Diagnosis/Indication Diagnosis SNOMED-CT Code Diagnosis ICD10 Code Diagnosis IMO Codes Diagnosis Note [id number] [facility] Charles ariza [address] [place] [address] 10/13/2020 00:00:00 10/13/2020 14:09:30 [id number] Alka Pena MD [facility] [place] [address] [place] [address] 01/17/2021 00:00:00 01/17/2021 12:29:55 [id number] Alka Pena MD [facility] [place] [address] [place] [address] 04/18/2021 00:00:00 04/18/2021 10:49:18 [id number] Alka Pena MD [facility] [place] [address] [place] [address] 06/20/2021 00:00:00 06/20/2021 10:02:17 [id number] [facility] [place] [address] [place] [address] 09/05/2021 00:00:00 09/05/2021 14:38:59 [id number] Alka Pena MD [facility] [place] [address] [place] [address] 12/04/2021 00:00:00 12/04/2021 09:15:05 [id number] Alka Pena MD [facility] [place] [address] [place] [address] 05/28/2022 00:00:00 05/28/2022 09:25:51 [id number] Concepcion Maldonado MD [facility] Primary [facility] [place] [address] [facility] [address] [place] [address] 07/30/2022 00:00:00 07/30/2022 18:43:47 [id number] Concepcion Maldonado MD [facility] [place] [address] [facility] [address] [place] [address] 11/26/2022 15:28:15 11/26/2022 17:15:13 Diabetes mellitus 50287138 E11.9 increase trulicity 1.5 mg sc qweekmarietta labs Hyperlipidemia 56310922 E78.5 Essential hypertension 01704680 I10 [id number] Concepcion Maldonado MD [facility] Primary [facility] [place] [address] [facility] [address] [place] [address] 12/27/2022 09:59:45 12/27/2022 10:36:59 Diabetes mellitus 57523937 E11.9 stable on trulicity 1.5 mg sc [id number] down to 6.6f/u in 6 weeks or sooner if needed [id number] Concepcion Maldonado MD [facility] Primary Care [facility] [address] [facility] [address] [place] [address] 03/21/2023 11:41:56 03/21/2023 12:41:47 Diabetes mellitus 29783208 E11.9 had to d/c trulicity due to costjardia nce increased appetitesh e would like to see if she can control her blood sugar with dietd/c jardianceh ealthy diet/exerc isecheck labs in 3 months Essential hypertension [id number] I10 Hyperlipidemia 94651843 E78.5 Z79.899 Dietary ma nagement surveillance [id number] Z71.3 reviewed potential med s/e and how to use properlyf/ u in 3 months or sooner if needed [id number] Concepcion Maldonado MD [facility] Primary Care [address] [facility] [place] [address] 06/17/2023 08:16:19 06/24/2023 14:01:19 [id number] Concepcion Maldonado MD [facility] Primary Care [address] [place] [address] 06/27/2023 08:57:55 06/27/2023 09:17:06 Hyperlipidemia 46480850 E78.5 Z79.899 Essential hypertension 12386335 I10 Diabetes mellitus 071151 09 E11.9 had to d/c trulicity due to costjardia nce increased appetitesh e would like to see if she can control her blood sugar with dietd/c jardianceh ealthy diet/exerc isecheck labs in 3 months update 06/27/23:pt found she has trouble with cravings and weight gainrestar t trulicity 0.75 mg sc qweek, plan to titrate up monthly as toleratedf /u in 4 weeks [id number] Concepcion Maldonado MD [facility] Primary Care [facility] [address] [facility] [address] [place] [address] 08/20/2023 08:11:58 08/20/2023 08:56:48 Diabetes mellitus 83051940 E11.9 had to d/c trulicity due to costjardia nce increased appetitesh e would like to see if she can control her blood sugar with dietd/c jardianceh ealthy diet/exerc isecheck labs in 3 months update 06/27/23:pt found she has trouble with cravings and weight gainrestar t trulicity 0.75 mg sc qweek, plan to titrate up monthly as toleratedf /u in 4 weeks update 08/20/23: tolerating trulicity 1.5 mg, ready to increase dosagechec k labsf/u in 3 months or sooner if needed Essential hypertension 29005763 I10 Hyperlipidemia 00764128 E78.5 Z79.966 [id number] Concepcion Maldonado MD [facility] Primary Care [facility] [address] [facility] [address] [place] [address] 11/19/2023 08:41:25 11/19/2023 09:15:09 Diabetes mellitus 51753392 E11.9 had to d/c trulicity due to costjardia nce increased appetitesh e would like to see if she can control her blood sugar with dietd/c jardianceh ealthy diet/exerc isecheck labs in 3 months update 06/27/23:pt found she has trouble with cravings and weight gainrestar t trulicity 0.75 mg sc qweek, plan to titrate up monthly as toleratedf /u in 4 weeks update 08/20/23: tolerating trulicity 1.5 mg, ready to increase dosagechec k labsf/u in 3 months or sooner if needed update 11/19/23: will decrease trulicity back down to 0.75 mg sc qweek due to GI s/elast a1c was excellent at 7.4recheck labs and f/u in 4 months to repeat labs to see if this dosage is adequate Essential hypertension 99146319 I10 stablecont inue lisinopril /hctz 20/12.5 mg Hyperlipidemia 37989907 E78.5 Z79.899 stablecont inue atorvastat in 20 mg daily [id number] CRYSTAL Pacheco [facility] Primary Care [address] [place] [address] 03/24/2024 10:33:35 03/24/2024 11:33:07 Essential hypertension 11464580 I10 Will continue medication as listed below.Will check labs as ordered below. Gastroesop hageal reflux disease 027796917 K21.9 Well controlled , no concerns at this time. Hyperlipidemia 06575505 E78.5 Z79.899 Will continue medication as listed below.Will check labs as ordered below. Type 2 criss betes mellitus without complication 336716871 E11.9 Patient stopped taking medication due to side effects.Wi ll check labs as ordered below. Skin lesion 84824323 L98 .9 Thyroid di sorder screening 454172472 Z13.29 Will check labs as listed below. [id number] CRYSTAL Pacheco [facility] Primary Care [address] [place] [address] 06/25/2024 10:32:54 06/25/2024 11:08:17 Hyperlipidemia 14604500 E78.5 Z79.899 Patient would like to switch back to Simvastati n as she tolerated it better. Essential hypertension 37190949 I10 Will continue medication as listed below.Will check labs as ordered below. Type 2 criss betes mellitus without complication 606236771 E11.9 A1c is 10.4 (03/24/24)Wi ll increase Ozempic to 0.5mg weekly and see how patient tolerates it.Will check labs as listed below. Pain of ri ght knee joint [id number] 16401 M25.561 Does not affect daily life, will continue to monitor. [id number] CRYSTAL Pacheco [facility] Primary Care [address] [place] [address] 09/23/2024 09:39:54 09/23/2024 10:04:10 Type 2 diabetes mellitus without complication 883784910 E11.9 A1c is 7.4 (06/25/24) Will increase Ozempic to 1mg weekly and see how patient tolerates it.Will check labs in 3 months. Pain of ri ght knee joint [id number] 31299 M25.827 [id number] JOSR PachecoRisa [facility] Primary Care [address] [place] [address] 11/18/2024 09:11:56 11/18/2024 09:56:27 [id number] CRYSTAL Pacheco [facility] Primary Care [address] [address] 12/24/2024 09:04:54 12/24/2024 09:42:42 Type 2 diabetes mellitus without complication 404788579 E11.9 A1c is 6.9 (10/2024)W ill switch Ozempic to Wegovy to see if fatigue increases. Will check labs in 3 months. Vitamin D deficiency 347 41509 E55.9 78739 Essential hypertension 12766917 I10 122/70.Ryan l continue with current medication s. [id number] CRYSTAL Pacheco [facility] Primary Care [address] [address] 2025 09:12:02 2025 09:50:12 Adult health examination 083582048 Z00.00 Z13.29 Discussed medication compliance and routine follow up.Discuss ed healthy diet and routine exercise.Klever simentalwed vaccine records and made recommenda tions as needed.Enc ouraged annual eye and dental exams, as well as twice yearly dental cleanings. Will check screening labs as listed below. Screening for disorder 636659153 Z13.9 Vitamin D deficiency 347 30105 E55.9 Will check labs and refill medication s as listed below. Essential hypertension 77418419 I10 128/78.Ryan l continue with current medication s. Type 2 criss betes mellitus without complication 992452662 E11.9 A1c is 6.9 (10/2024)W ill switch Ozempic to Wegovy to see if fatigue increases. Will check labs in 3 months. Hyperlipidemia 20912973 E78.5 Z79.899 Will refill meds and check labs as listed below. Body mass index 25-29 - overweight 351800084 E66.3 018819 Weight: 148 poundsBMI: 28.6 [id number] CYRSTAL Pacheco [facility] [address] [facility] [address] [place] [address] 06/03/2025 11:36:04 06/03/2025 12:17:51 Vertigo 798516532 R42 86401 Will order imaging as listed below due to popping sensation in head and no improvemen t in symptoms with treatment. Acute sequeira sudative otitis media 65811087 H65.191 [id number] Will treat as listed below. Patient to follow up as needed. Health Concerns Section Related Observation LastModified by Organization Detai ls LastModified Time None Recorded Concern Status LastModified by Organization Details LastModified Time None Recorded Advance Directives Directive None Recorded Payers Insurance Date Sequence Insurance Name Policy Number Policy William Covered Member ID William Member ID Guarantor Name 06/01/2025 1 [employer] (MEDICARE REPLACEMENT/A DVANTAGE - HMO) Dot Arauz [id number] Dot Arauz Notes Date Note Type Note Provider Name and Address Organization Details Recorded Time 09/23/2024 text/html ROS as noted in the HPI Patient is an 84 year old female that presents to the office for follow up. Patient complains of right knee discomfort that comes and goes. Patient previously declined imaging as it was not affecting her daily life. Patient reports knee is more painful now when she sleeps at night or if she is on if for extended periods of time. Patient denies treatment of symptoms. Patient would like to increase Ozempic to 1mg weekly and see how she tolerates the dose increase since her A1c was not at goal in June. CRYSTAL Pacheco [address] [place] [address], [facility] [address], [place], [address], [facility] [employer] 09/23/2024 10:14:06 12/24/2024 text/html ROS as noted in the HPI Patient is a 84 year old female that presents to the office for 3 month follow up. Patient is doing well overall, has been experiencing increased fatigue over the last few months. CRYSTAL Pacheco [address], [place], [address], [employer] 12/24/2024 09:48:13 2025 text/html Patient is a 85 year old female that presents to the office for Medicare Wellness. Patient reports she is doing well and has no concerns at this time. labs- orderedWWE- not neededMammogram- not neededColonoscopy- not neededFlu- recommendedCovid- recommendedTdap- UTDShingles- completedPneumo- UTDRSV- completed CRYSTAL Pacheco [address], [place], [address], [employer]e 2025 09:53:19 06/03/2025 text/html Patient is an 85 year old female that presents to the office for Hospital follow up. Patient went to the on Saturday for dizziness. Patient was diagnosed with vertigo and prescribed Meclizine. Patient denies any imaging being completed at . Patient reports Meclizine is not helping, only makes her sleepy.Patient reports dizziness originally started about one month ago, after being stung by a ground bee. Patient does not believe the two are related. Patient reports on Saturday she was walking along the wall at her house and felt something in her head pop and had increase in dizziness. CRYSTAL Pacheco [address], [facility] [place], [place], [address], [employer] 06/03/2025 14:22:03 OBGyn Episode No OBEpisode recorded.
--- OUTSIDE RECORDS SUMMARY | 2025-06-14 18:13 | XMS_ITS | Clinical Summary ---
Author Organization [facility] [employer] Address [address] [place] [address] Care Team Providers Care Patient Account Representative Name Role Phone Unavailable Primary Care Provider Unavailabl e Source Comments [facility] [employer],non-owned Affiliates and Associated Physician Practices is amultiple site organization consisting of ambulatory clinics and hospital sitesin [place], [place], [place] and [place]. This disclosure is being madepursuant to the Care Everywhere program and may not contain all information available regarding this patient. 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 Gender Identity Not on file Sexual Orientation Not on file Plan of Treatment Health Maintenance Due Date Last Done Comments BONE DENSITY TESTING 1940 DTAP/TDAP/TD VACCINES (1 - Tdap) 1959 PNEUMOCOCCAL VACCINE 50+ (1 of 1 - PCV) 1990 ZOSTER VACCINE (1 of 2) 1990 Respiratory Syncytial Virus (RSV) Vaccine Pt: or over 60 yrs (1 - 1-dose 75+ series) 2015 DEPRESSION SCREENING 07/22/2024 MEDICARE AWV CALENDAR YEAR 2024 COVID-19 VACCINE (1 - 2024-2 6 season) 2025 INFLUENZA VACCINE (#1) 2025 HEPATITIS B VACCINE Aged Out No longe r eligible based on patient's age to complete this topic HIB VACCINE Aged Out No longer eligi ble based on patient's age to complete this topic HPV VACCINE Aged Out No longer eligi ble based on patient's age to complete this topic MENINGOCOCCAL (Group B) VACC INE SHARED DECISION-MAKING Aged Out No longer eligibl e based on patient's age to complete this topic MENINGOCOCCAL GROUPS A/C/Y/W VACCINE Aged Out No longer eligible b ased on patient's age to complete this topic Insurance [employer] MEDICARE ADV HMO & PPO
--- OUTSIDE RECORDS SUMMARY | 2025-06-14 18:13 | XMS_ITS | Encounter Summary ---
Author Organization [facility] Address [address] [place] [address] Care Team Providers Care Project Surveyor Name Role Phone Unavailable Primary Care Provider Unavailabl e Encounter Details Date Type Department Care Team (Late st Contact Info) Description 08/04/2024 Lab Requisition [facility] - DermPath Lab [address] [place] [address] Caitlin Mccarthy DO [address] 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 Gender Identity Not on file Sexual Orientation Not on file documented as of this encounter Plan of Treatment Not on file documented as of this encounter Procedures Procedure Name Priority Date/Time Associated Diagnosis Comments DERMATOPATHOLOGY Routine 08/04/2024 3:03 PM HORSE SHOER documented in this encounter Results * DERMATOPATHOLOGY (08/04/2024 3:03 PM HORSE SHOER) Case Report Dermatopathology Report Case: [id number] Authorizing Provider: Caitlin Mccarthy DO Collected: 08/04/2024 03:03 PM Ordering Location: [facility] - Received: 08/05/2024 03:06 PM DermPath Lab Pathologist: Rosemarie Wright MD Specimen: Skin, mid upper back 4:14 PM [facility] DERMATOPATHOLOGY LABORATORY Final Diagnosis Specimen A. 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 The specimen consists of a shave biopsy measuring 6x5x1 mm. Jar 0. 4:14 PM [facility] DERMATOPATHOLOGY LABORATORY Microscopic Description Specimen A. SKIN, mid upper back: This is a compound nevus. There is melanin pigment in the stratum corneum. There is a lentiginous proliferation of melanocytes between nevus nests of cells along the dermal epidermal junction. There is underlying fibroplasia of the papillary dermis. The intradermal component is bland in appearance and matures with depth. There is a lymphohistiocytic infiltrate within the dermis. 4:14 PM [facility] DERMATOPATHOLOGY LABORATORY Disclaimer An external and internal positive and negative controls are appropriate for the histochemical, immunohistochemical and immunofluorescence stain(s) in this case (if any), except where stated explicitly. The performance characteristics of the stain(s) cited in this report were developed and its performance characteristic determined by the Dermatopathology Laboratory at [facility], directed by Dr. Damian Gomez. These tests need not be, and therefore are not, approved by the [place] Food and Drug Administration. The tests are used for clinical purposes. Billing Codes Specimen Charges Stain Charges 07829 1 5 4:14 PM [facility] DERMATOPATHOLOGY LABORATORY Embedded Images 4:14 PM [facility] DERMATOPATHOLOGY LABORATORY Pathology/Cytolo gy TISSUE SPECIMEN FROM SKIN / Unknown 08/04/2024 3:03 PM HORSE SHOER 08/05/2024 3:06 PM [facility] us Caitlin Mccarthy DO LAB - PATHOLOGY/CYTOLOGY ORDERABLES Final Result DERMATOPATHOLOGY LABORATORY [facility] - Department of Dermatology [address], [address] [phone] documented in this encounter Visit Diagnoses Not on filedocumented in this encounter
--- OUTSIDE RECORDS SUMMARY | 2025-06-14 18:13 | XMS_ITS | Continuity of Care Document ---
Author Organization [place] - [facility] [employer], [facility] [place] Address [address] [place] [address] Assessment No assessment recorded. Plan of Treatment Reminders Order Date Submit Date Provider Last Modified By Organization Details Last Modified Time Details Appointments Follow Up 2025 08:30A Candy Mariano NP Not available Not available Not available Lab None recorded. Referral None recorded. Procedures None recorded. Surgeries None recorded. Imaging CT, head, w/o contrast - Please call patient to schedule. 2024 025 [facility], [address] [place] [address] 162, [place], [address], 06/08/2025 12:38:27 Medication Orders prednison e 20 mg tablet 2024 025 [facility] 2425, [address] , [place], [address], 06/03/2025 12:14:10 Patient TargetsNo targets recorded. Patient InstructionsNo instructions recorded. Reason for Referral None Reported. Problems Name Problem SNOMED Code Status Onset Date Resolution Date Notes Provider Name and Address Organization Details Recorded Time Acute contact dermatiti s 584072596 Completed Not Available [facility] 3 02:51:25 Gastroeso phageal reflux disease 460556709 Active Not Available [facility] 3 02:51:25 Hypertrop hic condition of skin 42681019 Completed Not Available [facility] 3 02:51:25 Type 2 diabetes mellitus without complicat ion 934777749 Active Not Available [facility] 3 02:51:25 Hypertens destiny disorder 60141086 Active Not Available [facility] 3 02:51:25 Acute urinary tract infection 177234502 Completed Not Available [facility] 3 02:51:26 Foot pain 48485466 Completed Not Available [facility] 3 02:51:26 Hyperlipi demia 36987331 Active Not Available [facility] 3 02:51:26 Essential hypertens ion 48694462 Active Not Available [facility] 3 02:51:26 Hyperglyc emia 14996702 Completed Not Available [facility] 3 02:51:26 Skin lesion 83125743 Completed CRYSTAL Pacheco [address], [place], [address] , [employer] [facility] 4 11:00:45 Curly toe 201169666 Active 2019 Not Available [facility] 3 02:51:25 Diabetes mellitus 51433974 Active 2022 Concepcion Maldonado MD [address], [place], [address] , [employer] [facility] [employer] [facility] [employer] 3 15:55:03 Skin lesion 01468822 Active 2023 CRYSTAL Pacheco [address], [place], [address] , [employer] [facility] 4 11:00:45 Pain of right knee joint 59775554393 4100 Active 2023 CRYSTAL Pacheco [address], [place], [address] , [employer] [facility] [employer] [facility] 4 11:30:09 Vitamin D deficienc y 48430731 Active 2024 CRYSTAL Pacheco [address], [place], [address] , [employer] [facility] 5 09:38:03 Body mass index 25-29 - overweigh t 794064853 Active 2024 CRYSTAL Pacheco [address], [place], [address] , [employer] 09:52:43 Vertigo 602947303 Active 2024 CRYSTAL Pacheco [address], [place], [address] , [employer] 5 12:07:48 Acute transudat destiny otitis media 89370627 Active 2024 CRYSTAL Pacheco [address], [place], [address] , [employer] 5 12:12:02 Acute transudat destiny otitis media 20012783 Active 2024 JOSR Pacheco-Risa [address], [place], [address] , [employer] 5 12:12:11 Acute transudat destiny otitis media 73148854 Active 2024 CRYSTAL Pacheco [address], [place], [address] , [employer] 14:21:51 Problem Notes None recorded. Procedures Surgical History Date Name Laterality Status Provider Name and Address Organization Details Recorded Time 03/25/20 25 Medicare Wellness CPT Code, subsequent completed KATLIN Bellamy [employer] 2025 09:19:37 Hysterectomy completed Not Available [facility] 09/19/2022 02:40:07 Breast Implants completed Not Available [facility] 09/19/2022 02:40:07 Cholecystectomy completed Not Available [facility] 09/19/2022 02:40:07 Imaging Results None recorded. Procedure Notes None recorded. Medical Equipment None Reported. Allergies Allergen ID Allergen Name Allergen Category Reaction Reaction Severity Criticality Documentation Date Start Date Code Code System Note Provider Name and Address Organization Details Recorded Time 7151 codeine medicatio n Not available Not available Not available 09/19/2022 9820 RxNorm Not Available [facility] 03:05:59 Medications Name Sig Start Date Stop Date Status Note LastModified by Organization Details LastModified Time Vitamin B-12 1,000 mcg/mL injection solution Inject 1 mL every month by intramus cular route. 05/20 completed 49708-91 44-01 Not Available Not Available Not Available [...] completed Not Available Not Available Not Available [facility] 3 1 po qd 05/20 completed Not [...] Updated DateTime 5 153.16 cm 28.2 kg/m2 75017.4 9 g 96.7 [degF] 81 /min 94 % 132/82 mm[Hg] KATLIN Bellamy [place] [facility] [place] [employer] [facility] 5 11:53:07 Social History Question Answer Notes LastModified by Organization Details LastModified Time Tobacco Smoking Status Former Smoker quit may 2013 Not Available [facility] 09/19/2022 02:30:10 What Is Your Level Of Caffeine Consumption? Moderate MIGRATION.0301 [id number] Information not available 09/19/2022 How Much Tobacco Do You Chew? None MIGRATION.0301 577046 Information not available 09/19/2022 In The 14 Days Before Symptom Onset, Have You Had Close Contact With A Laboratory-confi rmed COVID-19 While That Case Was Ill? No MIGRATION.030 [id number] Information not available 09/19/2022 In The 14 Days Before Symptom Onset, Have You Had Close Contact With A Person Who Is Under Investigation For COVID-19 While That Person Was Ill? No MIGRATION.030 [id number] Information not available 09/19/2022 What Type Of Diet Are You Following? REGULAR MIGRATION.030 343596 Information not available 09/19/2022 When Did You Quit Smoking? 11-15yearssincelast cigarette Information not available 2025 Do You Use Insect Repellent Routinely? No Information not available 2025 [facility] available 2025 What Was The [...] Tobacco Do You Smoke? 0.25 PPD MIGRATION.0301 [id number] Information not available 09/19/2022 Do You Participate In Social Media? No Information not available 2025 Do You Use Sunscreen Routinely? Yes Information not available 2025 Has Tobacco Cessation Counseling Been Provided? No MIGRATION.0301 304546 Information not available 09/19/2022 Have You Recently Traveled Abroad? No MIGRATION.0301 163292 Information not available 09/19/2022 Do You Have Any Dietary Restrictions? No MIGRATION.0301 808924 Information not available 09/19/2022 Sex: Unknown Functional Status Question Answer Note LastModified by Organizat ion Details LastModified Time Do you use any illicit or recreational drugs? No [id number] Information not available 09/19/2022 Do you or have you ever used any other forms of tobacco or nicotine? No MIGRATION.[id number] 026 Information not available 09/19/2022 What is your level of alcohol consumption? None MIGRATION.[id number] 026 Information not available 09/19/2022 Are you currently employed? No Information not available 2025 What is your occupation? Retired MIGRATION.[id number] 026 Information not available 09/19/2022 What is your exercise level? Occasional MIGRATION.[id number] 026 Information not available 09/19/2022 Mental Status Question Answer Note LastModified by Organization D etails LastModified Time Do you feel stressed (tense, restless, nervous, or anxious, or unable to sleep at night)? [id number] Information not available 2025 Family History Relationship Description Onset Age of this Age Resolved Age Notes LastModified by Organization Details LastModified Time Mother Malignant neoplasm of ovary MIGRATION.622 [id number] Not available 09/19/2022 02:40:09 Father Malignant neoplasm of pharynx MIGRATION.627 [id number] Not available 09/19/2022 02:40:09 Medical History Condition [...] 50 mcg/0.25mL dose 1 completed Not Available [facility] 09/19/2022 03:05:17 COVID-19, mRNA, LNP-S, PF, 100 mcg/0.5mL dose or 50 mcg/0.25mL dose 1 completed Not Available [facility] 09/19/2022 03:05:17 COVID-19, mRNA, LNP-S, PF, 100 mcg/0.5mL dose or 50 mcg/0.25mL dose 1 completed Not Available [facility] 09/19/2022 03:05:17 Influenza, split virus, quadrivalent, preservative 0 completed Not Available [facility] 09/19/2022 03:05:17 Influenza, split virus, quadrivalent, preservative 9 completed Not Available [facility] 09/19/2022 03:05:17 pneumococcal polysaccharide PPV23 6 completed Not Available [facility] 09/19/2022 03:05:18 Influenza, high-dose, quadrivalent, PF 2 completed Not Available [facility] 09/19/2022 03:05:18 pneumococcal polysaccharide PPV23 1 completed Not Available [facility] 09/19/2022 03:05:18 Influenza, high-dose, quadrivalent, PF 1 completed Not Available [facility] 09/19/2022 03:05:18 Influenza, split virus, quadrivalent, PF 9 completed Not Available [facility] 09/19/2022 03:05:19 Pneumococcal conjugate PCV 13 7 completed Not Available [facility] 09/19/2022 03:05:19 zoster live 3 completed Not Available [facility] 09/19/2022 03:05:19 zoster recombinant 0 completed Not Available [facility] 06/03/2025 11:37:10 zoster recombinant 0 completed Not Available [facility] 06/03/2025 11:37:10 COVID-19, mRNA, LNP-S, PF, 30 mcg/0.3 mL dose 1 completed Not Available [facility] 06/03/2025 11:37:10 COVID-19, mRNA, LNP-S, bivalent, PF, 30 mcg/0.3 mL dose 2 completed Not Available [facility] 06/03/2025 11:37:10 Influenza, high-dose, quadrivalent, PF 3 completed Not Available [facility] 06/03/2025 11:37:10 COVID-19, mRNA, LNP-S, PF, dao-sucrose, 30 mcg/0.3 mL 3 completed Not Available [facility] 06/03/2025 11:37:10 RSV, recombinant, protein subunit RSVpreF, adjuvant reconstituted, 0.5 mL, PF 4 completed Not Available [facility] 06/03/2025 11:37:10 Tdap 4 completed Not Available [facility] 06/03/2025 11:37:10 Influenza, high-dose, trivalent, PF 4 completed Not Available [facility] 06/03/2025 11:37:10 Past Encounters Encounter ID Performer Location Encounter Start Date Encounter Closed Date Diagnosis/Indication Diagnosis SNOMED-CT Code Diagnosis ICD10 Code Diagnosis IMO Codes Diagnosis Note [id number] CRYSTAL Pacheco [facility] [address] [place] [address] 06/03/2025 11:36:04 06/03/2025 12:17:51 Vertigo 796205728 R42 26538 Will order imaging as listed below due to popping sensation in head and no improvemen t in symptoms with treatment. Acute sequeira sudative otitis media 60125128 H65.191 [id number] Will treat as listed below. Patient to follow up as needed. Health Concerns Section Related Observation LastModified by Organization Detai ls LastModified Time None Recorded Concern Status LastModified by Organization Details LastModified Time None Recorded Payers Encounter Date Sequence Insurance Name Policy Number Policy William Covered Member ID William Member ID Guarantor Name 06/03/2025 1 [employer] (MEDICARE REPLACEMENT/A DVANTAGE - HMO) Dot Arauz [id number] [employer] Notes Date Note Type Note Provider Name and Address Organization Details Recorded Time 06/03/2025 text/html Patient is an 85 year [...] and had increase in dizziness. CRYSTAL Pacheco [address] [facility] [facility] [address], [place], [address], [place] [facility] 06/03/2025 14:22:03 OBGyn Episode No OBEpisode recorded.
--- OUTSIDE RECORDS SUMMARY | 2025-06-14 18:13 | XMS_ITS | Continuity of Care Document ---
Author Organization [place] - [facility], [facility] [place] Address [address] [place] [address] Assessment No assessment recorded. Plan of Treatment Reminders Order Date Submit Date Provider Last Modified By Organization Details Last Modified Time Details Appointments Follow Up 30 2025 08:30A Candy Mariano NP Not available Not available Not available Lab vitamin D, 25-hydrox y, total, serum 2024 025 [facility] (Lab), [address] [place], [address], 04/01/2025 08:37:37 glycohemo globin, total, blood 2024 025 [facility] (Lab), [address] [place], [address], 04/01/2025 08:37:37 CMP, serum or plasma [address] [facility] (Lab), [address] [place], [address], 2025 14:01:00 CBC w/ auto diff [address] [facility] (Lab), [address] [place], [address], 2025 14:01:00 lipid panel, serum [address] [facility] (Lab), [address] [place], [address], 2025 14:01:01 TSH, serum or plasma [address] [facility] ([facility] [address], [place], [address], 2025 14:01:00 Referral None recorded. Procedures None recorded. Surgeries None recorded. Imaging None recorded. Medication Orders ergocalci ferol (vitamin D2) 1,250 mcg (50,000 unit) capsule 2024 025 [facility] [address], [address], [place], [address], 2025 09:38:20 Ozempic 1 mg/dose (4 mg/3 mL) subcutane ous pen injector 2024 025 [facility] [address], [address], [place], [address], 2025 09:38:21 lisinopri l 20 mg-hydroc hlorothia zide 12.5 mg tablet 2024 025 [facility] [address], [address], [place], [address], 2025 09:38:25 simvastat in 20 mg tablet 2024 025 [facility] [address], [address] , [place], [address], 2025 09:38:21 Patient TargetsNo targets recorded. Patient Instructions Encounter Date Encounter Id Patient Instructions Last Modified By Organization Details Last Modified Time 2025 [id number] dementia rating scale-2* Not available 2025 09:43:21 multi-dimensiona l health assessment questionnaire* Not available 2025 09:43:13 care plan* GRAHAM Not available 03/25 10:54:17 advance directiv es: care instructions Not available 2025 09:38:13 advance care planning: care instructions Not available 2025 09:38:13 [place] Advance Directives [email or web address] Not available 2025 09:38:13 Personalized Hea lt Plan and Screening Recommendations Advance Directives [...] Abnormal Flag Note LastModifiedBy Organization Detail LastModifiedTime Result Notes None recorded. Problems Name Problem SNOMED Code Status Onset Date Resolution Date Notes Provider Name and Address Organization Details Recorded Time Acute contact dermatiti s 134392197 Completed Not Available [facility] 3 02:51:25 Gastroeso phageal reflux disease 305228130 Active Not Available [facility] 3 02:51:25 Hypertrop hic condition of skin 66102829 Completed Not Available [facility] 3 02:51:25 Type 2 diabetes mellitus without complicat ion 274751479 Active Not Available [facility] 3 02:51:25 Hypertens destiny disorder 57589426 Active Not Available [facility] 3 02:51:25 Acute urinary tract infection 646840970 Completed Not Available [facility] 3 02:51:26 Foot pain 66635176 Completed Not Available [facility] 3 02:51:26 Hyperlipi demia 59102367 Active Not Available [facility] 3 02:51:26 Essential hypertens ion 46034252 Active Not Available [facility] 3 02:51:26 Hyperglyc emia 02747431 Completed Not Available [facility] 3 02:51:26 Skin lesion 65065748 Completed CRYSTAL Pacheco [address], [place], [address] , [employer] [facility] [employer] [facility] 4 11:00:45 Curly toe 079348912 Active 2019 Not Available [facility] 3 02:51:25 Diabetes mellitus 50829125 Active 2022 Concepcion Maldonado MD [address], [place], [address] , [employer] [facility] [employer] [facility] 3 15:55:03 Skin lesion 47669439 Active 2023 CRYSTAL Pacheco [address], [place], [address] , [employer] [facility] [employer] [facility] 4 11:00:45 Pain of right knee joint 23470808172 4100 Active 2023 CRYSTAL Pacheco [address], [place], [address] , [employer] [facility] [employer] [facility] 4 11:30:09 Vitamin D deficienc y 11897420 Active 2024 CRYSTAL Pacheco [address], [place], [address] , [employer] [facility] [employer] [facility] 5 09:38:03 Body mass index 25-29 - overweigh t 479301818 Active 2024 CRYSTAL Pacheco [address], [place], [address] , [facility] [place] [employer] 09:52:43 Vertigo 830981541 Active 2024 CRYSTAL Pacheco [address], [place], [address] , [facility] 5 12:07:48 Acute transudat destiny otitis media 61015408 Active 2024 CRYSTAL Pacheco [address], [place], [address] , [facility] [employer] 5 12:12:02 Acute transudat destiny otitis media 30927745 Active 2024 CRYSTAL Pacheco [address], [place], [address] , [facility] [employer] 5 12:12:11 Acute transudat destiny otitis media 46874576 Active 2024 CRYSTAL Pacheco [address], [place], [address] , [employer] [facility] [place] [employer] 5 14:21:51 Problem Notes None recorded. Procedures Surgical History Date Name Laterality Status Provider Name and Address Organization Details Recorded Time 03/25/20 25 Medicare Wellness CPT Code, subsequent completed KATLIN Bellamy [facility] [facility] [employer] 2025 09:19:37 Hysterectomy completed Not Available [facility] 09/19/2022 02:40:07 Breast Implants completed Not Available [facility] 09/19/2022 02:40:07 Cholecystectomy completed Not Available [facility] 09/19/2022 02:40:07 Imaging Results None recorded. Procedure Notes None recorded. Medical Equipment None Reported. Allergies Allergen ID Allergen Name Allergen Category Reaction Reaction Severity Criticality Documentation Date Start Date Code Code System Note Provider Name and Address Organization Details Recorded Time 4976 codeine medicatio n Not available Not available Not available 09/19/2022 2670 RxNorm Not Available [facility] 03:05:59 Medications Name Sig Start Date Stop Date Status Note LastModified by Organization Details LastModified Time Vitamin B-12 1,000 mcg/mL injection solution Inject 1 mL every month by intramus cular route. 05/20 completed 64135-99 44-01 Not Available Not Available Not Available [...] completed Not Available Not Available Not Available Yreka 3 1 po qd 05/20 completed Not Available Not Available Not Available OneTouch Ultra2 Meter kit U UTD 10/20 completed Not Available Not Available Not Available metformin ER 500 mg 24 hr tablet,ex tended release (gastric retention ) Take 1 tablet every day by oral route. 10/20 completed Not Available Not Available Not Available OneTouch Delica Lancets 33 gauge TEST ONCE D 10/20 [...] Available Not Available Not Available Fluad Quad 2289-4587 (65yr up)(PF) 60 mcg (15 mcg x [...] Updated DateTime 5 153.16 cm 28.6 kg/m2 98849.6 7 g 97.2 [degF] 73 /min 93 % 128/78 mm[Hg] KATLIN Bellamy [facility] 5 09:28:56 Social History Question Answer Notes LastModified by Organization Details LastModified Time Tobacco Smoking Status Former Smoker quit may 2013 Not Available [facility] 09/19/2022 02:30:10 What Is Your Level Of Caffeine Consumption? Moderate MIGRATION.0301 [id number] Information not available 09/19/2022 How Much Tobacco Do You Chew? None MIGRATION.0301 [id number] Information not available 09/19/2022 In The 14 Days Before Symptom Onset, Have You Had Close Contact With A Laboratory-confi rmed COVID-19 While That Case Was Ill? No MIGRATION.0301 [id number] Information not available 09/19/2022 In The 14 Days Before Symptom Onset, Have You Had Close Contact With A Person Who Is Under Investigation For COVID-19 While That Person Was Ill? No MIGRATION.0301 727159 Information not available 09/19/2022 What Type Of Diet Are You Following? REGULAR MIGRATION.0301 985172 Information not available 09/19/2022 When Did You [...] Tobacco Do You Smoke? 0.25 PPD MIGRATION.0301 218278 Information not available 09/19/2022 Do You Participate In Social Media? No Information not available 2025 Do You Use Sunscreen Routinely? Yes Information not available 2025 Has Tobacco Cessation Counseling Been Provided? No MIGRATION.0301 712783 Information not available 09/19/2022 Have You Recently Traveled Abroad? No MIGRATION.0301 752079 Information not available 09/19/2022 Do You Have Any Dietary Restrictions? No MIGRATION.0301 029679 Information not available 09/19/2022 Sex: Unknown Functional Status Question Answer Note LastModified by Organizat ion Details LastModified Time Do you use any illicit or recreational drugs? No MIGRATION.[id number] 026 Information not available 09/19/2022 Do you or have you ever used any other forms of tobacco or nicotine? No MIGRATION.0389117 026 Information not available 09/19/2022 What is your level of alcohol consumption? None MIGRATION.6880043 026 Information not available 09/19/2022 Are you currently employed? No Information not available 2025 What is your occupation? Retired MIGRATION.6294966 026 Information not available 09/19/2022 What is your exercise level? Occasional MIGRATION.2842092 026 Information not available 09/19/2022 Mental Status Question Answer Note LastModified by Organization D etails LastModified Time Do you feel stressed (tense, restless, nervous, or anxious, or unable to sleep at night)? [id number] Information not available 2025 Family History Relationship Description Onset Age of this Age Resolved Age Notes LastModified by Organization Details LastModified Time Mother Malignant neoplasm of ovary MIGRATION.825 [id number] Not available 09/19/2022 02:40:09 Father Malignant neoplasm of pharynx MIGRATION.875 [id number] Not available 09/19/2022 02:40:09 Medical History Condition [...] 50 mcg/0.25mL dose 1 completed Not Available [facility] 09/19/2022 03:05:17 COVID-19, mRNA, LNP-S, PF, 100 mcg/0.5mL dose or 50 mcg/0.25mL dose 1 completed Not Available [facility] 09/19/2022 03:05:17 COVID-19, mRNA, LNP-S, PF, 100 mcg/0.5mL dose or 50 mcg/0.25mL dose 1 completed Not Available [facility] 09/19/2022 03:05:17 Influenza, split virus, quadrivalent, preservative 0 completed Not Available [facility] 09/19/2022 03:05:17 Influenza, split virus, quadrivalent, preservative 9 completed Not Available [facility] 09/19/2022 03:05:17 pneumococcal polysaccharide PPV23 6 completed Not Available [facility] 09/19/2022 03:05:18 Influenza, high-dose, quadrivalent, PF 2 completed Not Available [facility] 09/19/2022 03:05:18 pneumococcal polysaccharide PPV23 1 completed Not Available [facility] 09/19/2022 03:05:18 Influenza, high-dose, quadrivalent, PF 1 completed Not Available [facility] 09/19/2022 03:05:18 Influenza, split virus, quadrivalent, PF 9 completed Not Available [facility] 09/19/2022 03:05:19 Pneumococcal conjugate PCV 13 7 completed Not Available [facility] 09/19/2022 03:05:19 zoster live 3 completed Not Available [facility] 09/19/2022 03:05:19 zoster recombinant 0 completed Not Available [facility] 06/03/2025 11:37:10 zoster recombinant 0 completed Not Available [facility] 06/03/2025 11:37:10 COVID-19, mRNA, LNP-S, PF, 30 mcg/0.3 mL dose 1 completed Not Available [facility] 06/03/2025 11:37:10 COVID-19, mRNA, LNP-S, bivalent, PF, 30 mcg/0.3 mL dose 2 completed Not Available [facility] 06/03/2025 11:37:10 Influenza, high-dose, quadrivalent, PF 3 completed Not Available [facility] 06/03/2025 11:37:10 COVID-19, mRNA, LNP-S, PF, dao-sucrose, 30 mcg/0.3 mL 3 completed Not Available [facility] 06/03/2025 11:37:10 RSV, recombinant, protein subunit RSVpreF, adjuvant reconstituted, 0.5 mL, PF 4 completed Not Available [facility] 06/03/2025 11:37:10 Tdap 4 completed Not Available [facility] 06/03/2025 11:37:10 Influenza, high-dose, trivalent, PF 4 completed Not Available [facility] 06/03/2025 11:37:10 Past Encounters Encounter ID Performer Location Encounter Start Date Encounter Closed Date Diagnosis/Indication Diagnosis SNOMED-CT Code Diagnosis ICD10 Code Diagnosis IMO Codes Diagnosis Note [id number] CRYSTAL Pacheco [facility] Primary [facility] [address] [place] [address] 2025 09:12:02 2025 09:50:12 Adult health examination 997648044 Z00.00 Z13.29 Discussed medication compliance and routine follow up.Discuss ed healthy diet and routine exercise.Klever simentalwed vaccine records and made recommenda tions as needed.Enc ouraged annual eye and dental exams, as well as twice yearly dental cleanings. Will check screening labs as listed below. Screening for disorder 199905422 Z13.9 Vitamin D deficiency 347 47169 E55.9 Will check labs and refill medication s as listed below. Essential hypertension 53710512 I10 128/78.Ryan l continue with current medication s. Type 2 criss betes mellitus without complication 997573088 E11.9 A1c is 6.9 (10/2024)W ill switch Ozempic to Wegovy to see if fatigue increases. Will check labs in 3 months. Hyperlipidemia 10460941 E78.5 Z79.899 Will refill meds and check labs as listed below. Body mass index 25-29 - overweight 023943485 E66.3 584145 Weight: 148 poundsBMI: 28.6 Health Concerns Section Related Observation LastModified by Organization Detai ls LastModified Time None Recorded Concern Status LastModified by Organization Details LastModified Time None Recorded Payers Encounter Date Sequence Insurance Name Policy Number Policy William Covered Member ID William Member ID Guarantor Name 2025 1 [employer] (MEDICARE REPLACEMENT/A DVANTAGE - HMO) Dot Arauz [id number] Dot Arauz Notes Date Note Type Note Provider Name and Address Organization Details Recorded Time 2025 text/html Patient is a 85 year old female that presents to the office for Medicare Wellness. Patient reports she is doing well and has no concerns at this time. labs- orderedWWE- not neededMammogram- not neededColonoscop y- not neededFlu- recommendedCovid - recommendedTdap- UTDShingles- completedPneumo- UTDRSV- completed JOAQUÍN PachecoP-C [address] [facility] [facility] [facility] [address] [facility] [address] [place], [address], [facility] 2025 09:53:19 OBGyn Episode No OBEpisode recorded.
--- OUTSIDE RECORDS SUMMARY | 2025-06-14 18:42 | XMS_ITS | Encounter Summary ---
Author Organization [facility] Address [address] [place] [address] Care Team Providers Care Boil[employer]aker [employer] Name Role Phone Unavailable Primary Care Provider Unavailabl e Encounter Details Date Type Department Care Team (Late st Contact Info) Description 08/04/2024 Lab Requisition [facility] - [facility] Lab [address] [place] [address] Caitlin Mccarthy DO [address] [facility] [facility] [place] [address] Social History Tobacco Use Types Packs/Day Years Used Date Smoking Tobacco: Never Assessed Comments Unknown Sex and Gender Information Value Date Recorded Sex Assigned at Not on file Legal Sex Female 3:21 PM RELIGIOUS HEALER Gender Identity Not on file Sexual Orientation Not on file documented as of this encounter Plan of Treatment Not on file documented as of this encounter Procedures Procedure Name Priority Date/Time Associated Diagnosis Comments DERMATOPATHOLOGY Routine 08/04/2024 3:03 PM RELIGIOUS HEALER documented in this encounter Results * DERMATOPATHOLOGY (08/04/2024 3:03 PM RELIGIOUS HEALER) Case Report Dermatopathology Report Case: [id number] Authorizing Provider: Caitlin Mccarthy DO Collected: 08/04/2024 03:03 PM Ordering Location: [facility] - Received: 08/05/2024 03:06 PM DermPath Lab Pathologist: Rosemarie Wright MD Specimen: Skin, mid upper back 4:14 PM RELIGIOUS HEALER DERMATOPATHOLOGY LABORATORY Final Diagnosis Specimen A. SKIN, mid upper back: LENTIGINOUS MELANOCYTIC NEVUS, COMPOUND TYPE, IRRITATED AND INFLAMED (D22.5) 5 4:14 PM RELIGIOUS HEALER DERMATOPATHOLOGY LABORATORY at [address]14 RELIGIOUS HEALER Clinical History Nevus R/O Atypia 4:14 PM [facility] Gross Description Specimen A: Received is one formalin filled container labeled with the patient's name and designated mid upper back. The specimen consists of a shave biopsy measuring 6x5x1 mm. Jar 0. 4:14 PM [facility] Microscopic Description Specimen A. SKIN, [...] lymphohistiocytic infiltrate within the dermis. 4:14 PM [facility] Disclaimer An external and internal positive and negative controls are appropriate for the histochemical, immunohistochemical and immunofluorescence stain(s) in this case (if any), except where stated explicitly. The performance characteristics of the stain(s) cited in this report were developed and its performance characteristic determined by the Dermatopathology Laboratory at [facility], directed by Dr. Damian Gomez. These tests need not be, and therefore are not, approved by the [place] Food and Drug Administration. The tests are used for clinical purposes. Billing Codes Specimen Charges Stain Charges 98346 1 5 4:14 PM [facility] Embedded Images 4:14 PM [facility] Pathology/Cytolo gy TISSUE SPECIMEN FROM SKIN / Unknown 08/04/2024 3:03 PM RELIGIOUS HEALER 08/05/2024 3:06 PM [facility] Caitlin Mccarthy DO LAB - PATHOLOGY/CYTOLOGY ORDERABLES Final Result DERMATOPATHOLOGY LABORATORY [facility] - Department of Dermatology [address], [address] [phone] documented in this encounter Visit Diagnoses Not on filedocumented in this encounter
--- OUTSIDE RECORDS SUMMARY | 2025-06-14 18:42 | XMS_ITS | Clinical Summary ---
Author Organization [facility] [employer] Address [address] [place] [address] Care Team Providers Care Investigation Division Sergeant Name Role Phone Unavailable Primary Care Provider Unavailabl e Source Comments [facility] [employer],non-owned Affiliates and Associated Physician Practices is amultiple site organization consisting of ambulatory clinics and hospital sitesin [place], [place], [place] and [place]. This disclosure is being madepursuant to the Care Everywhere program and may not contain all information available regarding this patient. 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
--- NOTE | 2025-06-14 19:09 | ECG_ITS ---
Test Date: 2025-06-14 19:12:00 Measurements Intervals [place] Rate: 100 P: 38 PA: 151 QRS: -64 QRSD: 73 T: 85 QT: 334 QTc: 431 Interpretive Statements SINUS TACHYCARDIA WITH OCCASIONAL SUPRAVENTRICULAR PREMATURE COMPLEXES PATTERN CONSISTENT WITH PULMONARY DISEASE LEFT ANTERIOR FASCICULAR BLOCK NONSPECIFIC T-WAVE ABNORMALITY Electronically Signed On 06-15-2025 05:53:03 [employer] OPERATOR by Gerald Peralta D.O
[2025-06-14 19:28] LABS: Troponin I 0.124 ng/mL (0.000-0.034)
[2025-06-14] MEDS: HEPARIN SOD/D5W 100 UNITS/ML 25,000 UNITS/250 ML BAG 10 UNITS IV CONT (20:32)
[2025-06-14 22:33] LABS: Troponin I 0.114 ng/mL (0.000-0.034)
[2025-06-15] VITALS (10 sets, daily range): BP systolic 108–120; BP diastolic 55–64; PULSE 83–96; RESP 16–22; O2SAT 91–95
--- NOTE | 2025-06-15 00:09 | PC.NURSE ---
Pt updated on transport ETA at this time. No further questions.
== END 2025-06-15 03:27 | disposition short-term general hospital (02) ==
PROVIDERS: Physician Assistant; Emergency Provider Emergency Medicine; PCP Nurse Practitioner Family
DX: I26.92 Saddle embolus of pulmonary artery without acute cor pulmonale (principal); E78.00 Pure hypercholesterolemia, unspecified; I10 Essential (primary) hypertension; Z79.899 Other long term (current) drug therapy; R94.31 Abnormal electrocardiogram [ECG] [EKG]; I44.4 Left anterior fascicular block; R06.02 Shortness of breath
CPT/HCPCS: 36415; 71046; 71275; 80053; 81001; 83690; 83880; 84484; 85025; 85610; 85730; 87086; 93005; 96365; 96366; 99285; J1644; Q9967